=== PATIENT | male | born 1950 | race Caucasian/White ===

== ENCOUNTER 2017-03-26 20:50 | Observation (INO) ==
--- NOTE | 2017-03-26 21:30 | Emergency Department Note ---
Disposition Clinical Impression: Acute renal failure Qualifiers: Acute renal failure type: unspecified Qualified Code(s): N17.9 - Acute kidney failure, unspecified Disposition: Admitted As Inpatient Condition: Fair Referrals: NONE,PCP [Primary Care Provider] - Forms: Work/School Release, ED Satisfaction Letter General Adult HPI - General Chief complaint: ED General Medical Stated complaint: High BP Time Seen by Provider: 03/26/17 21:08 Source: patient Mode of arrival: private vehicle Limitations: no limitations Nursing Notes Reviewed: Yes Vital Signs Reviewed: Yes - History of Present Illness Pt Subjective Complaint: "My blood pressure is elevated and I just dont feel well." Onset (ago): day(s) Location: other Radiation: non-radiation Pain Scale: 2 (Patient states, "I still have some soreness in chest from falling last week") Consistency: intermittent (Patient states, "It really only hurts if I move a certain way or take a big breath") Improves with: rest Worsens with: movement, other ("Big breath" - Patient demonstrates a deep inspiration) Associated symptoms: Reports: loss of appetite, malaise, other (diarrhea x 3 days - "runny, 4-5 times daily, no blood or melena"). Denies: confusion, cough , diaphoresis, fever/chills, headaches, nausea/vomiting, rash, seizure, shortness of breath, syncope, weakness Treatments Prior to Arrival: other (Was given Rx for Naproxen by Orthopedist to help with the soreness in the anterior chest wall) - Related Data Previous Rx's Medication Instructions Recorded Benzonatate [Tessalon] 100 mg PO TID #30 capsule 11/23/15 Oseltamivir [Tamiflu] 75 mg PO BID #10 capsule 11/23/15 Allergies Allergy/AdvReac Type Severity Reaction Status Date / Time Iodinated Contrast- Oral and Allergy See Verified 11/15/15 09:29 IV Dye Comments All systems ED: reviewed and negative except as stated. Review of Systems: As Per HPI Constitutional: Denies: fever, chills, weakness, night sweats Eyes: Denies: vision change ENT ED: Denies: throat pain, congestion, dysphagia Cardiovascular: Reports: as per HPI. Denies: palpitations, dyspnea on exertion , orthopnea, edema, syncope Respiratory: Denies: cough, dyspnea, wheezes, hemoptysis, stridor, sputum production Gastrointestinal: Reports: as per HPI, diarrhea. Denies: abdominal pain, nausea , vomiting, constipation ("Was constipated for a few days then started having diarrhea") Genitourinary: Denies: hematuria Musculoskeletal: Denies: back pain, neck pain, joint swelling Integumentary: Denies: rash Neurological: Denies: headache, weakness, numbness, paresthesias, confusion, abnormal gait, vertigo Psychiatric: Denies: anxiety Endocrine: Denies: fatigue Hematological/Lymphatic: Denies: easy bleeding, easy bruising Past Medical History - Past Medical History Attestation: Yes The following information was validated with the patient. Source: patient Medical history: Reports: coronary artery disease, GERD, hyperlipidemia, hypertension, myocardial infarction Surgical history: Reports: angioplasty/stent (one stent placed in 1999), appendectomy, other Psychiatric history: Reports: anxiety, depression - Social History Smoking Status: Never smoker Alcohol use: Reports: none Drug use: Reports: none Physical Exam - General Limitations: no limitations General appearance: alert, in no apparent distress - Head Head exam: atraumatic, normocephalic, normal inspection - Eye Eye exam: Present: normal appearance, PERRL. Absent: scleral icterus, conjunctival injection, periorbital swelling - ENT ENT exam: mucous membranes moist - Neck Neck exam: Present: normal inspection, full ROM, trachea midline. Absent: tenderness, meningismus - Chest Chest inspection: Present: normal inspection, symmetric chest wall rise, tenderness - Respiratory Respiratory exam: Present: normal lung sounds bilaterally. Absent: respiratory distress, wheezes, stridor, accessory muscle use, prolonged expiratory phase - Cardiovascular Cardiovascular exam: Present: regular rate, normal rhythm, normal heart sounds - Abdominal Exam Abdominal exam: Present: soft, Non-Tender, normal bowel sounds. Absent: distention, guarding, rebound, rigidity, organomegaly, Graham's sign, ascites, mass, pulsatile mass - Extremities Exam Extremities exam: Present: normal inspection, full ROM, normal capillary refill. Absent: pedal edema, joint swelling, calf tenderness - Back Exam Back exam: Present: normal inspection - Neurological Exam Neurological exam: Present: alert, oriented X3, CN II-XII intact, normal gait - Psychiatric Psychiatric exam: Present: normal affect, normal mood - Skin Skin exam: Present: warm, dry, intact, normal color Course Course Narrative: Patient is a 67-year-old male with history of coronary artery disease, status post one stent placed in year 1999. His marketing pr intern is in [place], but he has not seen him in several years. Patient cannot recall when his last stress test was. He presents for evaluation of generalized malaise for the last three days. He has had diarrhea, elevated blood pressure and some continued soreness in the chest from a fall last Sunday. He describes it as mechanical fall stemming from his knee giving out on him. He was holding onto a water bottle against his chest when he fell forward and has had some soreness in the anterior chest wall since then. He saw his orthopedist in a follow-up appointment for knee pain and discussed the chest soreness with that physician. He was given a prescription for naproxen to help with this pain. He has taken this since last Sunday. He denies any other medication changes. He states that the soreness in his chest does not feel similar in any way to his heart attack, but because of his heart history and the elevated blood pressure, he thought he should get everything checked out. He denies nausea, vomiting, fever or chills, dizziness, weakness, vertigo, syncope, shortness of breath or dyspnea on exertion. EKG, labs and x-ray have been ordered. Patient's EKG is unchanged compared to 2013, and shows a normal sinus rhythm with an old anteroseptal [place]. Chest x-ray was read as stable cardiomegaly. Labs show acute renal failure. This is new for him. I suspected it is partly due to the naproxen and partly dehydration. Hospitalist will be contacted for admission. Patient is resting comfortably and has no complaints at this time. IV fluids have been ordered. Vital Signs Temperature 97.8 F 03/26/17 21:02 Pulse Rate 77 03/26/17 21:02 Respiratory Rate 18 03/26/17 21:02 Blood Pressure 171/111 03/26/17 21:02 O2 Sat by Pulse Oximetry 94 03/26/17 21:02 Temperature 97.8 F 03/26/17 21:02 Pulse Rate 75 03/26/17 22:39 Respiratory Rate 18 03/26/17 22:39 Blood Pressure 148/93 03/26/17 22:39 O2 Sat by Pulse Oximetry 94 03/26/17 22:39 Oxygen Delivery Oxygen Delivery Room Air Medical Decision Making - Medical Records Medical records reviewed: Yes I reviewed the patient's medical records. - Lab Data Lab results reviewed: Yes I reviewed the patient's lab results. Lab results narrative: Laboratory Last Values WBC 9.8 K/mcL (4.3-11.1) 03/26/17 21:33 RBC 4.70 M/mcL (4.19-5.50) 03/26/17 21: Hgb 13.7 g/dL (12.9-16.9) 03/26/17 21: Hct 42.9 % (37.5-50.1) 03/26/17 21: MCV 91.3 fL (83.0-100.0) 03/26/17 21: MCH 29.1 pg (28.0-33.3) 03/26/17 21: MCHC 31.9 g/dL (31.6-35.5) 03/26/17 21: RDW 14.7 % (11.5-14.5) H 03/26/17 21:33 Plt Count 164 K/mcL (140-400) 03/26/17 21: MPV 11.8 fL (9.4-12.4) 03/26/17 21: Immature Gran % 0.2 % (0-4) 03/26/17 21: Seg Neutrophils % 72.5 % 03/26/17 21: Lymphocytes % 16.7 % 03/26/17 21: Monocytes % 8.1 % 03/26/17 21: Eosinophils % 1.9 % 03/26/17 21: Basophils % 0.6 % 03/26/17 21:33 Neutrophils # 7.1 K/mcL (1.6-8.9) 03/26/17 21: Lymphocytes # 1.6 K/mcL (0.6-4.6) 03/26/17 21: Monocytes # 0.8 K/mcL (0.0-1.3) 03/26/17 21: Eosinophils # 0.2 K/mcL (0.0-0.6) 03/26/17 21: Basophils # 0.1 K/mcL (0.0-0.2) 03/26/17 21:33 PT 12.0 Seconds (9.4-12.1) 03/26/17 21:35 INR 1.1 03/26/17 21:35 APTT 29.7 Seconds (26.0-36.0) 03/26/17 21:35 Sodium 139 mEq/L (136-145) 03/26/17 21:33 Potassium 5.4 mEq/L (3.5-4.5) H 03/26/17 21:33 Chloride 105 mEq/L (98-109) 03/26/17 21:33 Carbon Dioxide 26 mEq/L (19-29) 03/26/17 21:33 BUN 27 mg/dL (8-26) H 03/26/17 21:33 Creatinine 1.74 mg/dL (0.72-1.25) H 03/26/17 21:33 Est GFR ( Amer) 48 (> 60) L 03/26/17 21:33 Est GFR (Non-Af Amer) 39 (> 60) L 03/26/17 21:33 BUN/Creatinine Ratio 16 (6-26) 03/26/17 21:33 Glucose 96 mg/dL (70-99) 03/26/17 21:33 Calculated Osmolality 293 (280-300) 03/26/17 21:33 Calcium 9.5 mg/dL (8.6-10.8) 03/26/17 21:33 Total Bilirubin 0.7 mg/dL (0.2-1.2) 03/26/17 21:33 Direct Bilirubin 0.3 mg/dL (0.0-0.5) 03/26/17 21:33 AST 19 Units/L (5-34) 03/26/17 21:33 ALT 19 Units/L (0-55) 03/26/17 21:33 Alkaline Phosphatase 87 Units/L (38-126) 03/26/17 21:33 Troponin I 0.00 ng/mL (0-0.03) 03/26/17 21:33 Serum Total Protein 7.6 g/dL (6.0-8.3) 03/26/17 21:33 Albumin 4.0 g/dL (3.5-5.0) 03/26/17 21:33 Globulin 3.6 g/dL (2.4-3.5) H 03/26/17 21:33 Albumin/Globulin Ratio 1.1 (1.1-2.2) 03/26/17 21:33 Lipase 42 Units/L (8-78) 03/26/17 21:33 Urine Color Yellow (Yellow) 03/26/17 21:45 Urine Clarity Clear (Clear) 03/26/17 21:45 Urine pH 7.5 pH Units (5.0-8.0) 03/26/17 21:45 Ur Specific [place] 1.024 (1.010-1.025) 03/26/17 21:45 Urine Protein 30 mg/dL (Neg-Trace) H 03/26/17 21:45 Urine Glucose (UA) Normal mg/dL (Normal) 03/26/17 21:45 Urine Ketones Negative mg/dL (Negative) 03/26/17 21:45 Urine Blood Negative (Negative) 03/26/17 21:45 Urine Nitrite Negative (Negative) 03/26/17 21:45 Urine Bilirubin Negative (Negative) 03/26/17 21:45 Urine Urobilinogen Normal mg/dL (Normal) 03/26/17 21:45 Ur Leukocyte Esterase Negative (Negative) 03/26/17 21:45 Urine Microscopic RBC 0-3 per hpf (0-3) 03/26/17 21:45 Urine Microscopic WBC 0-3 per hpf (0-3) 03/26/17 21:45 Ur Squamous Epith Cells Many per lpf (None-Few) H 03/26/17 21:45 Ur Culture Indicated? NO (NO) 03/26/17 21:45 Result diagrams: 03/26/17 21:33 03/26/17 21:33 Lab Results 03/26/17 03/26/17 03/26/17 Range/Units 21:33 21:33 21:33 WBC 9.8 (4.3-11.1) K/mcL RBC 4.70 (4.19-5.50) M/mcL Hgb 13.7 (12.9-16.9) g/dL Hct 42.9 (37.5-50.1) % MCV 91.3 (83.0-100.0) fL MCH 29.1 (28.0-33.3) pg MCHC 31.9 (31.6-35.5) g/dL RDW 14.7 H (11.5-14.5) % Plt Count 164 (140-400) K/mcL MPV 11.8 (9.4-12.4) fL Immature Gran % 0.2 (0-4) % Seg Neutrophils % 72.5 % Lymphocytes % 16.7 % Monocytes % 8.1 % Eosinophils % 1.9 % Basophils % 0.6 % Neutrophils # 7.1 (1.6-8.9) K/mcL Lymphocytes # 1.6 (0.6-4.6) K/mcL Monocytes # 0.8 (0.0-1.3) K/mcL Eosinophils # 0.2 (0.0-0.6) K/mcL Basophils # 0.1 (0.0-0.2) K/mcL PT (9.4-12.1) Seconds INR APTT (26.0-36.0) Seconds Sodium 139 (136-145) mEq/L Potassium 5.4 H (3.5-4.5) mEq/L Chloride 105 (98-109) mEq/L Carbon Dioxide 26 (19-29) mEq/L BUN 27 H (8-26) mg/dL Creatinine 1.74 H (0.72-1.25) mg/dL Est GFR ( Amer) 48 L (> 60) Est GFR (Non-Af Amer) 39 L (> 60) BUN/Creatinine Ratio 16 (6-26) Glucose 96 (70-99) mg/dL Calculated Osmolality 293 (280-300) Calcium 9.5 (8.6-10.8) mg/dL Total Bilirubin 0.7 (0.2-1.2) mg/dL Direct Bilirubin 0.3 (0.0-0.5) mg/dL AST 19 (5-34) Units/L ALT 19 (0-55) Units/L Alkaline Phosphatase 87 (38-126) Units/L Troponin I 0.00 (0-0.03) ng/mL Serum Total Protein 7.6 (6.0-8.3) g/dL Albumin 4.0 (3.5-5.0) g/dL Globulin 3.6 H (2.4-3.5) g/dL Albumin/Globulin Ratio 1.1 (1.1-2.2) Lipase 42 (8-78) Units/L Urine Color (Yellow) Urine Clarity (Clear) Urine pH (5.0-8.0) pH Units Ur Specific [place] (1.010-1.025) Urine Protein (Neg-Trace) mg/dL Urine Glucose (UA) (Normal) mg/dL Urine Ketones (Negative) mg/dL Urine Blood (Negative) Urine Nitrite (Negative) Urine Bilirubin (Negative) Urine Urobilinogen (Normal) mg/dL Ur Leukocyte Esterase (Negative) Urine Microscopic RBC (0-3) per hpf Urine Microscopic WBC (0-3) per hpf Ur Squamous Epith Cells (None-Few) per lpf Ur Culture Indicated? (NO) 03/26/17 03/26/17 Range/Units 21:35 21:45 WBC (4.3-11.1) K/mcL RBC (4.19-5.50) M/mcL Hgb (12.9-16.9) g/dL Hct (37.5-50.1) % MCV (83.0-100.0) fL MCH (28.0-33.3) pg MCHC (31.6-35.5) g/dL RDW (11.5-14.5) % Plt Count (140-400) K/mcL MPV (9.4-12.4) fL Immature Gran % (0-4) % Seg Neutrophils % % Lymphocytes % % Monocytes % % Eosinophils % % Basophils % % Neutrophils # (1.6-8.9) K/mcL Lymphocytes # (0.6-4.6) K/mcL Monocytes # (0.0-1.3) K/mcL Eosinophils # (0.0-0.6) K/mcL Basophils # (0.0-0.2) K/mcL PT 12.0 (9.4-12.1) Seconds INR 1.1 APTT 29.7 (26.0-36.0) Seconds Sodium (136-145) mEq/L Potassium (3.5-4.5) mEq/L Chloride (98-109) mEq/L Carbon Dioxide (19-29) mEq/L BUN (8-26) mg/dL Creatinine (0.72-1.25) mg/dL Est GFR ( Amer) (> 60) Est GFR (Non-Af Amer) (> 60) BUN/Creatinine Ratio (6-26) Glucose (70-99) mg/dL Calculated Osmolality (280-300) Calcium (8.6-10.8) mg/dL Total Bilirubin (0.2-1.2) mg/dL Direct Bilirubin (0.0-0.5) mg/dL AST (5-34) Units/L ALT (0-55) Units/L Alkaline Phosphatase (38-126) Units/L Troponin I (0-0.03) ng/mL Serum Total Protein (6.0-8.3) g/dL Albumin (3.5-5.0) g/dL Globulin (2.4-3.5) g/dL Albumin/Globulin Ratio (1.1-2.2) Lipase (8-78) Units/L Urine Color Yellow (Yellow) Urine Clarity Clear (Clear) Urine pH 7.5 (5.0-8.0) pH Units Ur Specific [place] 1.024 (1.010-1.025) Urine Protein 30 H (Neg-Trace) mg/dL Urine Glucose (UA) Normal (Normal) mg/dL Urine Ketones Negative (Negative) mg/dL Urine Blood Negative (Negative) Urine Nitrite Negative (Negative) Urine Bilirubin Negative (Negative) Urine Urobilinogen Normal (Normal) mg/dL Ur Leukocyte Esterase Negative (Negative) Urine Microscopic RBC 0-3 (0-3) per hpf Urine Microscopic WBC 0-3 (0-3) per hpf Ur Squamous Epith Cells Many H (None-Few) per lpf Ur Culture Indicated? NO (NO) - Radiology Data Radiology results reviewed: Yes I reviewed the patient's radiology results. Chest X-Ray 03/26/17 21:18 IMPRESSION: No acute process. Stable cardiomegaly. D/ / Olive Constantino MD / Olive Constantino MD Interpreting Provider: Olive Constantino MD - EKG Data EKG #1 EKG attestation: Yes I reviewed and interpreted this EKG. EKG shows normal: sinus rhythm Rate: normal Rhythm: NSR [place]/QRS: normal QRS morphology: poor R-wave progression When compared to previous EKG there are: no significant changes Interpretation: unchanged when compared to prior tracing (date), other ( Previous anterior septal [place] ) Attestation Statement - Attestation Attestation: I, Michael Alfaro DO have provided [id number] time during the care of this patient. Detailed review the presentation, symptoms, medical history were discussed and reviewed with the mid-level provider Maria Teresa Abbott PA-C/FL[employer] RESERVATIONS MANAGER. Medical intervention labs and imaging studies were reviewed in detail. See full documentation of physical exam and course of care in the mid-level provider 's note. I agree with the determined course of care, medical interventio,n and disposition put forth by the mid-level provider. See below documentation for changes or alterations in documentation. 67-year-old male presents to emergency room with complaint of generalized malaise and elevated blood pressure home. He has a history of cardiac issues including a myocardial infarction with stenting. He has not fallen up with PCP or marketing pr intern since that event. Patient does not appear to have appropriate outpatient medical treatment established at this time. Screening evaluation completed for asymptomatic hypertension with no other complaints. EKG shows sinus rhythm with no acute pathology. He does have an elevated kidney function tests and this time with decreased GFR. Concern is noted for hypertension with end organ dysfunction. Patient otherwise has negative troponin. Detailed review and documented physical exam completed by the mid-level provider. Admission process to be completed after detailed discussion with the patient at the bedside. My physical exam is otherwise benign. Lungs are clear heart is regular abdomen soft nontender nondistended. Vital signs reviewed and are otherwise stable. Patient is in no distress will be admitted for evaluation symptomatically treatment of kidney related insufficiency and elevated blood pressure.
[2017-03-26 21:51] LABS: Basophils # 0.1 K/mcL (0.0-0.2); Basophils % 0.6 %; Eosinophils # 0.2 K/mcL (0.0-0.6); Eosinophils % 1.9 %; Hematocrit 42.9 % (37.5-50.1); Hemoglobin 13.7 g/dL (12.9-16.9); Immature Granulocytes % 0.2 % (0-4); Lymphocytes # 1.6 K/mcL (0.6-4.6); Lymphocytes % 16.7 %; Mean Corpuscular HGB Conc 31.9 g/dL (31.6-35.5); Mean Corpuscular Hemoglobin 29.1 pg (28.0-33.3); Mean Corpuscular Volume 91.3 fL (83.0-100.0); Mean Platelet Volume 11.8 fL (9.4-12.4); Monocytes # 0.8 K/mcL (0.0-1.3); Monocytes % 8.1 %; Neutrophils # 7.1 K/mcL (1.6-8.9); Platelet Count 164 K/mcL (140-400); Red Cell Distribution Width 14.7 % (11.5-14.5); Segmented Neutrophils % 72.5 %
[2017-03-26 22:26] LABS: INR 1.1
[2017-03-26 22:29] LABS: Activated Partial Thrombo Time 29.7 Seconds (26.0-36.0)
[2017-03-26 22:32] LABS: Bilirubin,Urine Negative (Negative); Clarity,Urine Clear (Clear); Color,Urine Yellow (Yellow); Glucose,Urine (UA) Normal (Normal)
[2017-03-26 22:33] LABS: Blood,Urine Negative (Negative); Ketones,Urine Negative (Negative); Leukocyte Esterase,Urine Negative (Negative); Nitrite,Urine Negative (Negative); PH,Urine 7.5 pH Units (5.0-8.0); Protein,Urine 30 mg/dL (Neg-Trace); RBC,Urine 0-3 per hpf (0-3); Specific Gravity,Urine 1.024 (1.010-1.025); Squamous Epithelial Cell,Urine Many per lpf (None-Few); Urobilinogen,Urine Normal (Normal); WBC,Urine 0-3 per hpf (0-3)
[2017-03-26 23:03] LABS: Albumin/Globulin Ratio 1.1 (1.1-2.2); Bilirubin,Direct 0.3 mg/dL (0.0-0.5); Bilirubin,Total 0.7 mg/dL (0.2-1.2); Calcium 9.5 mg/dL (8.6-10.8); Globulin 3.6 g/dL (2.4-3.5); Total Protein 7.6 g/dL (6.0-8.3)
[2017-03-26 23:04] LABS: Potassium 5.4 mEq/L (3.5-4.5)
[2017-03-26] MEDS ORDERED: 0.9 % Sodium Chloride 1,000 ML IVC ONE (23:07)
[2017-03-27] MEDS ORDERED: Naloxone 0.4 MG/ML INJ IVP PRN (03:27)
[2017-03-27] MEDS ORDERED: Ondansetron 4 MG/2 ML VIAL IVP PRN (03:27)
[2017-03-27] MEDS ORDERED: *HR* Morphine 2 MG/ML SYRINGE IVP PRN (03:27)
--- NOTE | 2017-03-27 03:57 | Internal Med History&Physical ---
Date of Encounter: 03/27/17 Time of Encounter: 03:52 Assessment and Plan (1) Acute kidney injury Current visit: Yes Status: Acute 1. Hold diuretics and Naprosyn. 2. Verify home med list when able. 3. IVF hydration. 4. Will need nephrology consult if renal function does not improve. (2) Chest pain Current visit: Yes Status: Acute 1. Will stop Naprosyn. 2. Chest pain is musculoskeletal and occurred while at work. Qualifiers: Chest pain type: intercostal pain Qualified Code(s): R07.82 - Intercostal pain (3) DVT prophylaxis Current visit: Yes Status: Acute 1. Heparin SQ. Internal Medicine - H&P: HPI Chief complaint: chest wall pain; fatigue Admitted From: Emergency Dept Plans for Post Hospital Care: Home History of present illness: Mr. De Santiago is a 67 year old male who presents with complaints of fatigue, malaise , constipation, and some chest wall pain. He had fallen last week and sustained a contusion to his chest wall. He was placed on some Naprosyn which has helped alleviate his symptoms. However, he has complained of some subtle GI upset, fatigue, malaise, and decreased urine output. He was seen in the ER and had initial workup performed. EKG and troponin were negative. He does have a history of heart disease and it was felt prudent to admit him for observation. Additionally, he does have evidence of acute kidney injury which is new for him. Unfortunately, his medication list is not updated, but he states he takes a blood pressure pill and a water pill. Given that he is on a chronic diuretic, has decrease oral fluid intake, and has been on Naprosyn, I am concerned about some prerenal injury and/or ATN. Patient denies any fevers, muscle or body aches, vomiting, or diarrhea. Past Med Surg Social Fam HX - Past Medical History Attestation: Yes The following information was validated with the patient. Source: patient, old records reviewed Medical history: coronary artery disease, GERD, hyperlipidemia, hypertension, myocardial infarction Psychiatric history: anxiety, depression - Past Surgical History Surgical History: angioplasty/stent, appendectomy, other - Social History Smoking Status: Never smoker Smokeless Tobacco Status: No Alcohol use: none Drug use: none Current living situation: Home, With Family Activity Level: Independent ambulation - Family History Mother Living Status: Hx Family Psychosocial Disorders: Yes (alzheimers) Father Living Status: Hx Family Cardiac Disorders: Yes Brother Living Status: Hx Family Endocrine Disorder: Yes (DM) Internal Medicine - H&P: Meds 3 Allergy/AdvReac Type Severity Reaction Status Date / Time Iodinated Contrast- Oral and Allergy See Verified 11/15/15 09:29 IV Dye Comments - Constitutional Constitutional: no chills, no fever(s) - EENT Eyes: no blurry vision, no change in vision Ears: no ear pain, no tinnitus Nose, mouth and throat: no nasal congestion, no nasal discharge, no sinus pressure, no sore throat - Cardiovascular Cardiovascular ROS IM: chest pain, no diaphoresis, no dyspnea, no dyspnea on exertion, no edema, no palpitations - Respiratory Respiratory: no cough, no dyspnea, no hemoptysis, no wheezing, no chest congestion, no excessive phlegm production - Gastrointestinal Gastrointestinal: bloating, constipation, cramping, no abdominal pain, no diarrhea, no hematemesis, no hematochezia, no melena, no nausea, no vomiting - Genitourinary Genitourinary ROS male: no dysuria, no flank pain, no hematuria - Musculoskeletal Musculoskeletal ROS IM: no arthralgias, no back pain - Integumentary Integumentary IM: no rash, no jaundice - Neurological Neurological ROS: no dizziness, no focal weakness, no frequent falls, no headache(s) - Psychiatric Psychiatric: no anxiety, no depression - Endocrine Endocrine IM: no polydipsia, no polyuria - Hematologic/Lymphatic Hematologic/Lymphatic: no easy bruising, no lymphadenopathy - Allergic/Immunologic Allergic/Immunologic: no wheezing - Constitutional Vitals: Temp Pulse Resp BP Pulse Ox 97.7 F 65 16 158/89 93 03/27/17 01:02 03/27/17 01:02 03/27/17 01:02 03/27/17 01:02 03/27/17 01:02 General appearance: Present: cooperative, A&O X 3, pleasant, no acute distress, answers questions appropriately - Head Head exam: Present: atraumatic, normal inspection - Eye Eye exam: Present: EOMI, normal appearance, PERRL. Absent: scleral icterus Pupils: Present: normal accommodation - ENT ENT exam: Present: mucous membranes dry, normal exam - Neck Neck exam general surgery: Present: full ROM, supple. Absent: tenderness - Respiratory Respiratory exam: Present: chest wall tenderness, CTAB. Absent: rales, rhonchi , wheezes - Cardiovascular Cardiovascular exam: Present: RRR, +S1, +S2. Absent: diastolic murmur, systolic murmur - GI/Abdominal GI/Abdominal exam: Present: normal bowel sounds, soft. Absent: hepatomegaly, mass, splenomegaly, tenderness - Extremities Exam Extremities exam: Present: full ROM, warm. Absent: calf tenderness, joint swelling, pedal edema - Back Exam Back exam: Present: normal inspection. Absent: CVA tenderness (L), CVA tenderness (R) - Neurological Exam Neurological exam: Present: alert, CN II-XII intact, oriented X3 - Psychiatric Psychiatric exam: Present: normal affect, normal mood - Skin Skin exam: Present: dry Internal Med - H&P Results - Labs CBC & Chem 7: 03/26/17 21:33 03/26/17 21:33 - EKG Data -: EKG Interpreted by Myself - EKG Data Prior EKG available for review: yes When compared to previous EKG: there is no significant change EKG comments: 03/27/17 04:04 NSR; old anteroseptal [place] - Diagnostic Studies Chest x-ray Status: image reviewed by me (negative)
[2017-03-27] MEDS: 0.9 % Sodium Chloride 1,000 ML IVC SCH ×2 (04:04→15:10)
[2017-03-27 05:02] LABS: Basophils # 0.1 K/mcL (0.0-0.2); Basophils % 0.5 %; Eosinophils # 0.2 K/mcL (0.0-0.6); Eosinophils % 1.9 %; Hematocrit 42.6 % (37.5-50.1); Hemoglobin 13.4 g/dL (12.9-16.9); Immature Granulocytes % 0.4 % (0-4); Lymphocytes # 1.9 K/mcL (0.6-4.6); Lymphocytes % 19.9 %; Mean Corpuscular HGB Conc 31.5 g/dL (31.6-35.5); Mean Corpuscular Hemoglobin 29.1 pg (28.0-33.3); Mean Corpuscular Volume 92.4 fL (83.0-100.0); Mean Platelet Volume 11.9 fL (9.4-12.4); Monocytes # 0.8 K/mcL (0.0-1.3); Monocytes % 8.3 %; Neutrophils # 6.5 K/mcL (1.6-8.9); Platelet Count 151 K/mcL (140-400); Red Blood Count 4.61 M/mcL (4.19-5.50); Red Cell Distribution Width 14.8 % (11.5-14.5)
[2017-03-27 05:22] LABS: Albumin 3.7 g/dL (3.5-5.0); Albumin/Globulin Ratio 1.2 (1.1-2.2); Bilirubin,Total 0.8 mg/dL (0.2-1.2); Calcium 9.4 mg/dL (8.6-10.8); Chol/HDL Ratio 3.1 (0-4.9); Globulin 3.1 g/dL (2.4-3.5); Magnesium 2.1 mg/dL (1.6-2.6); Total Protein 6.8 g/dL (6.0-8.3)
[2017-03-27] MEDS: *HR* Heparin 5,000 UNIT/ML VIAL SQ SCH ×2 (06:18→18:08)
[2017-03-27] MEDS ORDERED: Perflutren Lipid Microsphere 1.3 ML in 0.9 % Sodium Chloride 8.7 ML IVP ONE (10:26)
--- NOTE | 2017-03-27 12:14 | Internal Med Progress Note ---
Date of Encounter: 03/27/17 Time of Encounter: 09:15 - Assessment and plan (1) Adverse effect of non-steroidal anti-inflammatory drug (NSAID) Current Visit: Yes Status: Suspected Assessment and plan: Initial report was that the patient had only been on naproxen for one week however he states that he has been taking 1 tablet twice a day and he had a bottle of 60 and there are only 2 left so he has been taking these for a month. Likely contributing to his acute kidney injury, they have been held at this time and he has been instructed to avoid NSAIDs pending further investigation. Of note, he states that his chronic pain to his right knee which was status post total knee replacement and subsequent left leg pain is the best that he has felt in quite some time. He was cautioned that this may have been secondary to the NSAID usage which has now been held. If his pain returns, he was instructed to follow-up with his orthopedic doctor for further recommendations. (2) Hyperkalemia Current Visit: Yes Status: Acute Assessment and plan: Pseudohyperkalemia secondary to acute kidney injury, improving, will trend (3) Acute kidney injury Current Visit: Yes Status: Acute Assessment and plan: Improving, will continue IV fluids, monitor overnight. If he continues to improve, likely discharge tomorrow pending clinical outcomes. (4) Chest pain Current Visit: Yes Status: Acute Assessment and plan: Reproducible with palpation highly consistent with musculoskeletal etiology. He states that he fell last week and he was carrying a bottle of water and when he fell, the bottle water went into his chest. Chest x-ray negative. Troponins negative 3. Low suspicion for ACS. ITS Impressions Chest X-Ray 03/26/17 21:18 IMPRESSION: No acute process. Stable cardiomegaly. D/ / Olive Constantino MD / Olive Constantino MD Interpreting Provider: Olive Constantino MD Qualifiers: Chest pain type: intercostal pain Qualified Code(s): R07.82 - Intercostal pain (5) DVT prophylaxis Current Visit: Yes Status: Acute Assessment and plan: Subcutaneous heparin - Subjective Interval history: Patient seen and examined. On examination, patient is sitting upright in bed watching television. Patient denies pain at this time and states that his legs currently feel better than they have felt in years. He is endorsing a normal appetite. - Constitutional Vitals: Temp Pulse Resp BP Pulse Ox 98.5 F 70 16 164/98 92 03/27/17 11:01 03/27/17 11:01 03/27/17 11:01 03/27/17 11:01 03/27/17 11:01 General appearance: Present: cooperative, A&O X 3, pleasant, no acute distress, obese, answers questions appropriately - Head Head exam: Present: atraumatic, normocephalic - Eye Eye exam: Present: PERRL, conjuntiva pink, sclera anicteric Pupils: Present: PERRL - Neck Neck exam general surgery: Present: supple, trachea midline. Absent: lymphadenopathy - Respiratory Respiratory exam: Present: CTAB. Absent: accessory muscle use, rales, respiratory distress, rhonchi, wheezes - Cardiovascular Cardiovascular exam: Present: RRR, +S1, +S2. Absent: diastolic murmur, gallop, rubs, systolic murmur - GI/Abdominal GI/Abdominal exam: Present: normal bowel sounds, soft, no peritoneal signs. Absent: distended, tenderness - Extremities Exam Extremities exam: Present: warm, radial pulses palpable and symmetrical. Absent : calf tenderness, cyanotic, pedal edema - Neurological Exam Neurological exam: Present: alert, CN II-XII intact, oriented X3, no focal deficits, strengths equal and symetr throughout. Absent: pronater drift, facial droop, speech deficit - Skin Skin exam: Present: dry, intact, normal color, warm Internal Medicine: Result - Labs CBC & Chem 7: 03/27/17 03:39 03/27/17 03:39 Labs: Short CBC 03/27/17 Range/Units 03:39 WBC 9.4 (4.3-11.1) K/mcL Hgb 13.4 (12.9-16.9) g/dL Hct 42.6 (37.5-50.1) % Plt Count 151 (140-400) K/mcL Neutrophils # 6.5 (1.6-8.9) K/mcL BMP 03/27/17 03:39 Sodium 137 Potassium 5.0 H Chloride 105 Carbon Dioxide 26 BUN 25 Creatinine 1.58 H Glucose 85 Calcium 9.4 Cardiac Enzymes 03/27/17 03/27/17 Range/Units 03:39 09:12 Troponin I 0.02 0.02 (0-0.03) ng/mL Liver Function 03/27/17 Range/Units 03:39 Total Bilirubin 0.8 (0.2-1.2) mg/dL AST 17 (5-34) Units/L ALT 18 (0-55) Units/L Alkaline Phosphatase 89 (38-126) Units/L Albumin 3.7 (3.5-5.0) g/dL - ABG Interpretation ABG results: PT/INR, D-dimer PT 12.0 Seconds (9.4-12.1) 03/26/17 21:35 Consult Discharge Plan - Plan Referrals: NONE,PCP [Primary Care Provider] -
[2017-03-27] MEDS: Metoprolol XL (24 HR) Succ 50 MG TAB.ER.24H PO SCH (12:36)
[2017-03-27] MEDS ORDERED: *HR* Metoprolol 5 MG/5 ML VIAL IVP PRN (16:21)
[2017-03-27] MEDS ORDERED: *HR* Metoprolol 5 MG/5 ML VIAL IVP ONE (16:23)
[2017-03-27] MEDS ORDERED: 0.9 % Sodium Chloride 1,000 ML IVC SCH ×2 (16:29→17:00)
[2017-03-27] MEDS ORDERED: *HR* LORazepam 2 MG/ML VIAL IVP PRN (16:59)
--- NOTE | 2017-03-27 17:02 | Event Note ---
Date of Encounter: 03/27/17 Time of Encounter: 16:30 Accelerated hypertension noted despite IV hydralazine. Holding his losartan and furosemide given his acute kidney injury. We will stop IV fluids at this time. Patient stating his face feels a bit puffy and states his abdominal girth appears enlarged. He denies shortness of breath or chest pain at this time. He does endorse epigastric pain. Repeat EKG unremarkable. Rechecking troponins as well this time. We will also obtain a retroperitoneal ultrasound given his acute kidney injury and accelerated hypertension. Metoprolol was continued earlier today when the dosage was confirmed by pharmacology note. Patient also appears anxious, will add IV lorazepam as needed. Echocardiogram reviewed and compared to prior echo from 2013 with no acute changes. Ejection fraction remains 40%. Does appear as if he has diastolic heart failure and he is on furosemide at home. We will stop IV fluids at this time and monitor closely.
--- NOTE | 2017-03-27 18:36 | Electrocardiograph Report ---
[address] [place] [address] Test Date: 2017-03-26 Pat Name: Sheng De Santiago Department: 104 Room: 3B16 Gender: M [employer]: [employer] : 1950 Requested By: Maria Teresa Abbott Order Number: [id number] Reading MD: Cathi Wu Measurements Intervals [place] Rate: 73 P: -3 AK: 201 QRS: -20 QRSD: 87 T: 71 QT: 334 QTc: 359 Interpretive Statements SINUS RHYTHM ANTEROSEPTAL MYOCARDIAL INFARCTION, OF INDETERMINATE AGE Electronically Signed On 03-27-2017 18:34:32 EDT by Cathi Wu
[2017-03-28 04:19] LABS: BUN/Creatinine Ratio 17 (6-26); Blood Urea Nitrogen 23 mg/dL (8-26); Calcium 9.7 mg/dL (8.6-10.8); Carbon Dioxide 22 mEq/L (19-29); Chloride 108 mEq/L (98-109); Glucose 93 mg/dL (70-99); Osmolality,Calculated 289 (280-300); Potassium 4.9 mEq/L (3.5-4.5); Sodium 138 mEq/L (136-145); eGFR For African Americans > 60 (> 60); eGFR For Non-African Americans 51 (> 60)
[2017-03-28] MEDS: *HR* Heparin 5,000 UNIT/ML VIAL SQ SCH ×2 (05:41→18:33)
[2017-03-28] MEDS: Metoprolol XL (24 HR) Succ 50 MG TAB.ER.24H PO SCH (09:07)
[2017-03-28] MEDS: Acetaminophen 325 MG TABLET PO PRN ×2 (09:08→22:24)
[2017-03-28] MEDS: Aspirin Enteric Coated 325 MG Tablet PO SCH (09:08)
[2017-03-28] MEDS: Furosemide 20 MG TABLET PO SCH (09:08)
[2017-03-28] MEDS: (Ezetimibe [Zetia] 10 MG) PO SCH (09:10)
--- NOTE | 2017-03-28 13:25 | Internal Med Progress Note ---
Date of Encounter: 03/28/17 Time of Encounter: 12:45 - Assessment and plan (1) Hypertension Current Visit: Yes Status: Chronic Assessment and plan: poorly controlled. His ADÁN improved today, so his furosemide and losartan home doses were continued. He remained hypertensive. At home, he is on losartan 100 mg daily, furosemide 20 mg daily, metoprolol XL 75 mg daily. Heart rate also averaging in the low 70s, we will increase his metoprolol dosage. Initially, patient was likely set for discharge today however given his uncontrolled hypertension, the patient stated he doesn't want to go home with his blood pressure uncontrolled and he cited severe anxiety and trepidation. We will adjust his medications and observe overnight. Likely discharge tomorrow pending clinical outcomes (2) Adverse effect of non-steroidal anti-inflammatory drug (NSAID) Current Visit: Yes Status: Suspected Assessment and plan: Initial report was that the patient had only been on naproxen for one week however he states that he has been taking 1 tablet twice a day and he had a bottle of 60 and there are only 2 left so he has been taking these for a month. I verified the prescription today which was filled on 03/06/17 of #40 tablets, and there are none left in the container. Likely contributing to his acute kidney injury, they have been held at this time and he has been instructed to avoid NSAIDs pending further investigation. Of note, he states that his chronic pain to his right knee which was status post total knee replacement and subsequent left leg pain is the best that he has felt in quite some time. He was cautioned that this may have been secondary to the NSAID usage which has now been held. If his pain returns, he was instructed to follow-up with his orthopedic doctor for further recommendations. (3) Hyperkalemia Current Visit: Yes Status: Acute Assessment and plan: Trending down as renal functioning improving. Pseudohyperkalemia secondary to acute kidney injury, will trend (4) Acute kidney injury Current Visit: Yes Status: Acute Assessment and plan: Improving and nearly resolved. Okayed to restart home furosemide and losartan this am. Had to stop his IVF yesterday for concerns of early fluid overload. He has denied shortness of breath throughout this admission. Will likely discharge tomorrow if his blood pressures are better controlled. Retroperitoneal ultrasound unremarkable for acute processes other than mid retention in the setting of BPH- follow up outpatient- urinalysis negative, no indication for further inpatient testing. ITS Impressions Retroperitoneum Ultrasound 03/27/17 21:30 IMPRESSION: 1. Mild cortical thinning in the left kidney and simple cysts in both kidneys. 2. Bladder mucosal thickening with a moderate postvoid residual. 3. Slight prominence of the prostate which may suggest bladder outflow obstruction. Correlate with urology evaluation. D/ / Obie Chávez MD / Obie Chávez MD Interpreting Provider: Obie Chávez MD (5) Chest pain Current Visit: Yes Status: Acute Assessment and plan: Reproducible with palpation highly consistent with musculoskeletal etiology. He states that he fell last week and he was carrying a bottle of water and when he fell, the bottle water went into his chest. Chest x-ray negative. Troponins negative 3. Low suspicion for ACS. ITS Impressions Chest X-Ray 03/26/17 21:18 IMPRESSION: No acute process. Stable cardiomegaly. D/ / Olive Constantino MD / Olive Constantino MD Interpreting Provider: Olive Constantino MD Qualifiers: Chest pain type: intercostal pain Qualified Code(s): R07.82 - Intercostal pain (6) DVT prophylaxis Current Visit: Yes Status: Acute Assessment and plan: Subcutaneous heparin - Subjective Interval history: Patient seen and examined. On examination, patient is sitting upright in bed eating lunch. Patient stating he is feeling better. He denies chest pain at this time. He is endorsing concern regarding his elevated blood pressures. - Constitutional Vitals: Temp Pulse Resp BP Pulse Ox 98.0 F 73 16 157/90 92 03/28/17 11:33 03/28/17 11:33 03/28/17 11:33 03/28/17 11:33 03/28/17 11:33 General appearance: Present: cooperative, A&O X 3, pleasant, no acute distress, obese, answers questions appropriately - Head Head exam: Present: atraumatic, normocephalic - Eye Eye exam: Present: PERRL, conjuntiva pink, sclera anicteric Pupils: Present: PERRL - Neck Neck exam general surgery: Present: supple, trachea midline. Absent: lymphadenopathy - Respiratory Respiratory exam: Present: CTAB. Absent: accessory muscle use, rales, respiratory distress, rhonchi, wheezes - Cardiovascular Cardiovascular exam: Present: RRR, +S1, +S2. Absent: diastolic murmur, gallop, rubs, systolic murmur - GI/Abdominal GI/Abdominal exam: Present: normal bowel sounds, soft, no peritoneal signs. Absent: distended, tenderness - Extremities Exam Extremities exam: Present: warm, radial pulses palpable and symmetrical. Absent : calf tenderness, cyanotic, pedal edema - Neurological Exam Neurological exam: Present: alert, CN II-XII intact, normal gait, oriented X3, no focal deficits, strengths equal and symetr throughout. Absent: pronater drift, facial droop, speech deficit - Skin Skin exam: Present: dry, intact, normal color, warm Internal Medicine: Result - Labs CBC & Chem 7: 03/27/17 03:39 03/28/17 03:09 Labs: BMP 03/28/17 03:09 Sodium 138 Potassium 4.9 H Chloride 108 Carbon Dioxide 22 BUN 23 Creatinine 1.39 H Glucose 93 Calcium 9.7 Cardiac Enzymes 03/27/17 03/27/17 Range/Units 15:33 16:58 Troponin I 0.01 0.00 (0-0.03) ng/mL - ABG Interpretation ABG results: PT/INR, D-dimer PT 12.0 Seconds (9.4-12.1) 03/26/17 21:35 - Impressions Impressions Retroperitoneum Ultrasound 03/27/17 21:30 IMPRESSION: 1. Mild cortical thinning in the left kidney and simple cysts in both kidneys. 2. Bladder mucosal thickening with a moderate postvoid residual. 3. Slight prominence of the prostate which may suggest bladder outflow obstruction. Correlate with urology evaluation. D/ / Obie Chávez MD / Obie Chávez MD Interpreting Provider: Obie Chávez MD Consult Discharge Plan - Plan Referrals: Sheng De Leon Jr, MD [Partnered Physician] - 04/05/17 10:30 am
--- NOTE | 2017-03-28 14:50 | Electrocardiograph Report ---
[place] [address] Test Date: 2017-03-27 Pat Name: Sheng De Santiago Department: 113 Room: 3B16 Gender: M [employer]: [facility] : 1950 Requested By: Ted Moulton Order Number: [id number] Reading MD: Darryl Chavez MD Measurements Intervals [place] Rate: 90 P: 66 DC: 211 QRS: -24 QRSD: 105 T: 64 QT: 347 QTc: 394 Interpretive Statements SINUS RHYTHM WITH FIRST DEGREE AV BLOCK Poor R wave progression Electronically Signed On 03-28-2017 14:48:45 EDT by Darryl Chavez MD
[2017-03-28] MEDS: Metoprolol XL (24 HR) Succ 25 MG TAB.ER.24H PO ONE ×2 (18:33→18:34)
[2017-03-29] MEDS: *HR* Heparin 5,000 UNIT/ML VIAL SQ SCH (06:29)
[2017-03-29 06:57] LABS: Calcium 9.8 mg/dL (8.6-10.8)
[2017-03-29] MEDS: Furosemide 20 MG TABLET PO SCH (07:43)
[2017-03-29] MEDS: (Ezetimibe [Zetia] 10 MG) PO SCH (07:45)
[2017-03-29] MEDS: Aspirin Enteric Coated 325 MG Tablet PO SCH (07:45)
[2017-03-29] MEDS ORDERED: Metoprolol XL (24 HR) Succ 50 MG TAB.ER.24H PO SCH (09:00)
--- NOTE | 2017-03-29 09:57 | Discharge Summary ---
<Miguel Angel Arredondo - Last Filed: 03/29/17 10:41> Date of Encounter: 03/29/17 Time of Encounter: 09:57 - Discharge Diagnosis (1) Hypertension Priority: Primary Status: Chronic Qualifiers: Hypertension type: unspecified Qualified Code(s): I10 - Essential (primary ) hypertension (2) Acute kidney injury Priority: Secondary Status: Acute (3) Chest pain Priority: Secondary Status: Acute Qualifiers: Chest pain type: intercostal pain Qualified Code(s): R07.82 - Intercostal pain (4) Adverse effect of non-steroidal anti-inflammatory drug (NSAID) Priority: Secondary Status: Suspected Qualifiers: Encounter type: initial encounter Qualified Code(s): T39.395A - Adverse effect of other nonsteroidal anti-inflammatory drugs [NSAID], initial encounter (5) Hyperkalemia Priority: Secondary Status: Acute - Discharge Medications Prescriptions: Metoprolol XL (24 HR) Succ [Toprol Xl] 100 mg PO DAILY #30 Home Medications: Aspirin [Lo-Dose Aspirin EC] 325 mg PO DAILY 03/27/17 [History] Atorvastatin Calcium [Lipitor] 80 mg PO HS 03/27/17 [History] BuPROPion [Wellbutrin] 75 PO 03/27/17 [History] Ezetimibe [Zetia] 10 mg PO DAILY 03/27/17 [History] Furosemide [Lasix] 20 mg PO DAILY 03/27/17 [History] Losartan Potassium [Cozaar] 100 mg PO DAILY 03/27/17 [History] Omeprazole [PriLOSEC] 20 PO BID 03/27/17 [History] Sertraline [Zoloft] 150 mg PO DAILY 03/27/17 [History] Testosterone Cypionate [Depo-Testosterone] 400 mg IM QMONTH 03/27/17 [History] Metoprolol XL (24 HR) Succ [Toprol Xl] 100 mg PO DAILY #30 03/29/17 [Rx] Allergies/Adverse Reactions: 3 Allergy/AdvReac Type Severity Reaction Status Date / Time No Known Allergies Allergy Verified 03/27/17 08:22 Procedures/tests Complete & Pending: Procedures Performed prior 72 hours Category Date Time Status Retroperitoneal Ultrasound - Complete [US Exams 03/27/17 21:30 Completed retroperitoneal comp] [US] Routine ECG 12 lead ECG [ECG] AM 0600 Y 03/27/17 06:00 Completed EV echocardiogram w enhance Routine Y 03/27/17 03:27 Completed CXR: "FINDINGS: The lungs are without acute focal process. There is no effusion or pneumothorax. The cardiomediastinal silhouette is prominent but stable. The osseous structures are without acute process. XR/XR chest 1V portable IMPRESSION: No acute process. Stable cardiomegaly." Echo: "Impressions: LVEF 40%. Mild to moderate LV systolic dysfunction with regional variations. There is evidence of mild diastolic dysfunction of the left ventricle. RV is not well evaluated. Mild pulmonic regurgitation. No pulmonary hypertension." Retroperitoneal U/S: "FINDINGS: Kidneys: The right kidney measures 10.3 x 4.6 x 4.8 cm in length and the left kidney measures 9.4 x 4.3 x 5.0 cm in length. Asymmetric cortical thinning in the left kidney. 5.5 cm cyst in the mid right kidney. 2.7 cm cyst in the mid left kidney. No solid renal lesion. Bladder: Bladder mucosa appears to be thickened. There is also debris within the lumen. Prevoid volume is measured at 277 cc. There is a postvoid residual measured at 73 cc. The prostate is measured 4.1 x 4.2 x 4.0 cm. US/US retroperitoneal comp IMPRESSION: 1. Mild cortical thinning in the left kidney and simple cysts in both kidneys. 2. Bladder mucosal thickening with a moderate postvoid residual. 3. Slight prominence of the prostate which may suggest bladder outflow obstruction. Correlate with urology evaluation." Date of admission: 03/27/17 00:19 Primary care physician: PCP NONE Discharging clinician: Miguel Angel Arredondo Anticipated date of discharge: 03/29/17 - Patient Status Disposition: Home, Self-Care Condition: Fair Functional capacity at discharge: independent ambulation Overall status at discharge: patient is progressing back to baseline - Discharge Instructions Instructions: Chest Pain (DC), Acute Kidney Injury (DC), Chronic Hypertension ( DC) Follow Up With: Sheng De Leon Jr, MD [Partnered Physician] - 04/05/17 10:30 am Additional Instructions: Follow-up appointments: If there is not an appointment listed below, please call your physician and schedule a follow-up appointment. If you have congestive heart failure and your symptoms return, make an appointment with your physician. Medication List: Carry an up to date list of medications you are taking at all time. We have given you an updated medication list including any new medications that you have been prescribed. Please provide that list to your primary provider Symptoms: If your condition changes or you experience any of the following symptoms, notify your physician immediately: Unusual or worsening pain, fever, persistent nausea and vomiting, bleeding, increase in swelling (especially in your legs), sudden weight gain, extreme dizziness, chest pain, increased drainage or redness from a wound or incision. Go to the emergency department if you experience a problem with breathing. Weights: If you have a history of swelling or shortness of breath, weigh yourself daily and notify your physician if you have a weight gain of two or more pounds in one day or 5 or more pounds in a week. If you experience any of the warning signs for stroke: Sudden numbness or weakness of the face, arm or leg; especially on one side of the body, sudden confusion, trouble speaking or understanding, sudden trouble seeing in one or both eyes, sudden trouble walking, dizziness, loss of balance or coordination, sudden sever headache with no cause; Call 911 or go to the emergency room. Stroke is a medical emergency. Some risk factors for stroke: Age, cigarette smoking, diabetes, excessive alcohol consumption, family history , high blood pressure, overweight, physical inactivity, prior stroke, heart attack, diagnosis of carotid artery stenosis or other artery disease. If you smoke, STOP: Smoking or tobacco use significantly increases your risk of heart and lung disease. Your chance of disease greatly increases if you continue to smoke. For more information, call the [place] tobacco quit line for smoking cessation QUIT-NOW ( ) - Diet and Activity Activity: resume usual activities as tolerated Diet: low salt diet Interval History: Patient reports feeling well. He denies CP, SOB, BOOTHE, Blurry vision, Abd pn, Nausea, Vomiting, Diarrhea, Dizziness. He reports feeling well enough to go home and reports being eager to go home. Hospital course: Mr. De Santiago is a 67 year old male C PMHX of coronary artery disease, GERD, hyperlipidemia, hypertension, myocardial infarction, anxiety and depression who reports to the hospital for fatigue, malaise, constipation and some chest wall pain. Patient was worked up for cardiac causes, but was negative and it was determiend to be chest wall pain. Patient was found to have an ADÁN, which improved with fluids and avoiding nephrotoxins. Patient was found to be taking an excessive amount of naprosyn. He was instructed to reduce his NSAID usage. Patient was also hypertensive to the 190s and had his Metoprolol dose increased. His BP was better controlled and he was sent home with close follow up. - Time Spent with Patient Total time spent providing and/or coordinating discharge services: 40 minutes - Constitutional Vitals: Temp Pulse Resp BP Pulse Ox 97.8 F 68 18 138/82 96 03/29/17 07:11 03/29/17 07:11 03/29/17 07:11 03/29/17 07:11 03/29/17 07:11 General appearance: Present: cooperative, A&O X 3, pleasant, no acute distress, obese, answers questions appropriately - Head Head exam: Present: atraumatic, normocephalic - Eye Eye exam: Present: sclera anicteric - ENT ENT exam: Present: mucous membranes moist - Neck Neck exam general surgery: Present: supple, trachea midline - Respiratory Respiratory exam: Present: CTAB. Absent: rales, rhonchi, wheezes - Cardiovascular Cardiovascular exam: Present: RRR, +S1, +S2. Absent: diastolic murmur, gallop, rubs, systolic murmur - GI/Abdominal GI/Abdominal exam: Present: normal bowel sounds, soft. Absent: tenderness - Extremities Exam Extremities exam: Absent: cyanotic, pedal edema, tenderness - Neurological Exam Neurological exam: Present: alert, oriented X3. Absent: facial droop, speech deficit - Psychiatric Psychiatric exam: Present: normal affect, normal mood - Skin Skin exam: Present: dry, intact, warm <Nandini,Kishor P - Last Filed: 03/29/17 18:35> Date of Encounter: 03/29/17 Procedures/tests Complete & Pending: Procedures Performed prior 72 hours Category Date Time Status Retroperitoneal Ultrasound - Complete [US Exams 03/27/17 21:30 Completed retroperitoneal comp] [US] Routine ECG 12 lead ECG [ECG] AM 0600 Y 03/27/17 06:00 Completed EV echocardiogram w enhance Routine Y 03/27/17 03:27 Completed Date of admission: 03/27/17 00:19 Primary care physician: PCP NONE Hospital course: Mr. De Santiago is a 67 year old male - Time Spent with Patient Total time spent providing and/or coordinating discharge services: - Constitutional Vitals: Temp Pulse Resp BP Pulse Ox 97.8 F 68 18 148/101 94 03/29/17 11:14 03/29/17 11:14 03/29/17 11:14 03/29/17 11:14 03/29/17 11:14 - Attending Attestation I examined this patient and my medical decision-making was reviewed with the Resident Physician. I agree with the documented findings, disposition and treatment plan as described except to the extent set forth below.
[2017-03-29 11:16] VITALS: BP 148/101
== END 2017-03-29 11:15 | disposition home or self-care (01) ==
LOC: 3BNU 20:50 → EMEROO 20:50 → 3BNU 03-27 00:35
PROVIDERS: ADMIT Pediatrics; ATTEND Registered Nurse

== ENCOUNTER 2018-01-06 17:48 | Observation (INO) ==
--- NOTE | 2018-01-06 18:18 | Emergency Department Note ---
Disposition Clinical Impression: Renal insufficiency Chest pain Qualifiers: Chest pain type: unspecified Qualified Code(s): R07.9 - Chest pain, unspecified Disposition: Admitted As Inpatient Condition: Fair Referrals: Sheng De Leon Jr, MD [Primary Care Provider] - Forms: ED Satisfaction Letter Time of Disposition: 21:13 Chest Pain HPI - General Chief Complaint: ED Chest Pain Stated Complaint: chest pain Time Seen by Provider: 01/06/18 18:01 Source: patient Limitations: no limitations Vital Signs Reviewed: Yes Nursing Notes Reviewed: Yes - History of Present Illness HPI Narrative: 67-year-old male history of CAD s/p stent resents emergency department with complaint of chest pain. When I asked what brought him in he says his blood pressure has been running higher over the past 2 days. It has been systolic 150s. The typically runs 120. He has been taken is antihypertensive medications without any recent changes. He is unable to recall what they are. He also reports Sunday afternoon he experienced nonexertional chest pain that was sharp and nonradiating. Is also been experiencing pain in his abdomen roughly around the same time that seems to be moving upwards. He denies any nausea or vomiting. Denies any injury or trauma. Denies any shortness of breath. Denies any lightheadedness or syncope. Denies any recent illness cough or congestion. He reports recently being admitted in diagnosed with pulmonary embolism which she takes Eliquis. He has not had a heart catheterization since his state was placed in 1999. He also reports every time he takes his aspirin in the morning the pain seems to be worse. Denies any recent long-distance travel. Pt complaint: chest pain Severity scale (1-10): 4 - Related Data Home Medications Medication Instructions Recorded Confirmed Aspirin [Lo-Dose Aspirin EC] 325 mg PO DAILY 03/27/17 04/13/17 Atorvastatin Calcium [Lipitor] 80 mg PO HS 03/27/17 04/13/17 Ezetimibe [Zetia] 10 mg PO DAILY 03/27/17 04/13/17 Furosemide [Lasix] 20 - 40 mg PO DAILY 03/27/17 04/13/17 Losartan Potassium [Cozaar] 100 mg PO DAILY 03/27/17 04/13/17 Sertraline [Zoloft] 150 mg PO DAILY 03/27/17 04/13/17 Testosterone Cypionate 400 mg IM QMONTH 03/27/17 04/13/17 [Depo-Testosterone] Previous Rx's Medication Instructions Recorded Metoprolol XL (24 HR) Succ [Toprol 100 mg PO DAILY #30 03/29/17 Xl] Apixaban [Eliquis] 10 mg PO BID #45 tablet 04/13/17 Apixaban [Eliquis] 10 mg PO BID #8 tablet 04/13/17 Allergies Allergy/AdvReac Type Severity Reaction Status Date / Time No Known Allergies Allergy Verified 03/27/17 08:22 All systems ED: reviewed and negative except as stated. Review of Systems: As Per HPI Constitutional: Denies: fever, chills Cardiovascular: Reports: chest pain. Denies: syncope Respiratory: Denies: cough, dyspnea Gastrointestinal: Reports: abdominal pain. Denies: nausea, vomiting, diarrhea, melena, hematochezia Genitourinary: Denies: urgency, dysuria Musculoskeletal: Denies: back pain Integumentary: Denies: rash, abrasion Neurological: Denies: headache, weakness Chest Pain PMH - Past Medical History Medical history: Reports: coronary artery disease, GERD, hyperlipidemia, hypertension, myocardial infarction Surgical history: Reports: angioplasty/stent, appendectomy, other Psychiatric history: Reports: anxiety, depression - Social History Smoking Status: Never smoker Alcohol use: Reports: none Drug use: Reports: none Physical Exam - General Limitations: no limitations General appearance: alert, in no apparent distress, obese - Head Head exam: atraumatic, normocephalic, normal inspection - Eye Eye exam: Present: normal appearance, PERRL, EOMI - ENT ENT exam: normal exam, normal oropharynx, mucous membranes moist - Neck Neck exam: Present: normal inspection, full ROM, trachea midline. Absent: tenderness - Chest Chest inspection: Present: normal inspection, symmetric chest wall rise. Absent : tenderness, rash - Respiratory Respiratory exam: Present: normal lung sounds bilaterally. Absent: respiratory distress, wheezes - Cardiovascular Cardiovascular exam: Present: regular rate, normal rhythm, normal heart sounds. Absent: systolic murmur, diastolic murmur - Expanded Cardiovascular Exam Peripheral pulses: 2+: radial (R), radial (L) - Abdominal Exam Abdominal exam: Present: soft, Non-Tender, normal bowel sounds. Absent: tenderness, distention, guarding, rebound, rigidity, tenderness at McBurney's Point, pulsatile mass - Extremities Exam Extremities exam: Present: normal inspection, full ROM, normal capillary refill. Absent: tenderness, pedal edema - Back Exam Back exam: Present: normal inspection, full ROM. Absent: tenderness, CVA tenderness (R), CVA tenderness (L) - Neurological Exam Neurological exam: Present: alert, oriented X3, CN II-XII intact - Expanded Neurological Exam Patient oriented to: Present: person, place, time Speech: Present: fluid speech Cranial nerves: EOM function (II, III, IV, ): Normal, facial sensation (V): Normal, facial palsy (VII): Normal, gag reflex (IX): Normal, spinal accessory function (XI): Normal, tongue deviation (XII): Normal Cerebellar function: normal gait Motor strength - LUE: 5/5 Motor strength - RUE: 5/5 Motor strength - LLE: 5/5 Motor strength - RLE: 5/5 Upper motor neuron exam: darryl neglect: Absent bilaterally, pronator drift: Absent bilaterally Sensory exam upper extremity: light touch: Normal Sensory exam lower extremity: light touch: Normal - Psychiatric Psychiatric exam: Present: normal affect, normal mood - Skin Skin exam: Present: warm, dry, intact, normal color Course Course Narrative: Patient presents with intermittent chest pain that feels similar to his prior myocardial infarction. He has a history of stents. Also reported history of pulmonary embolism currently taking Eliquis. States his pain seems to radiate vertically along his chest. He denies any lightheadedness or syncope. Radial pulses are equal bilaterally. Given his cardiac history chest pain workup initiated. Will also obtain CT of the chest and abdomen pelvis to evaluate for possible dissection. Patient reports pain of 1 of 10. - Reevaluation(s) Reevaluation #1: EKG does not reveal any acute ischemic changes. No leukocytosis. Some renal insufficiency that appears near baseline 1.4. Troponin was less than 0.03. His HEART score is 5. CT of his chest abdomen and pelvis did not reveal dissection. Patient will likely require admission for further management and monitoring for his chest pain given his cardiac history. Impression is chest pain R/O ACS. Patients in agreement with this plan. Aspirin has been given. Patient is currently chest pain free. CT/CT angio chest IMPRESSION: 1. No acute aortic pathology. No evidence of aneurysm or dissection. Mild to moderate diffuse atherosclerotic plaque as outlined above. 2. No acute pulmonary findings. 3. Mild cardiomegaly. Thinning of the left ventricular wall with calcification, particularly within the septum and apex, consistent with previous myocardial infarction. 4. No acute findings within the abdomen or pelvis. Bilateral renal cysts. 5. Colonic diverticulosis with no acute features. 6. Mild bladder wall thickening with submucosal fat suggesting a chronic cystitis. 7. 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 The SMA is nonstenotic and the KAYLA is patent. - Consultations Consultation #1: Spoke with on-call hospitalist arlene Maqruez to admit for chest pain r/o acs. No further orders at this time. HEART score is 5. Vital Signs Temperature 98.1 F 01/06/18 17:48 Pulse Rate 69 01/06/18 17:48 Respiratory Rate 20 01/06/18 17:48 Blood Pressure 175/108 01/06/18 17:48 O2 Sat by Pulse Oximetry 96 01/06/18 17:48 Temperature 98.1 F 01/06/18 18:13 Pulse Rate 64 01/06/18 20:57 Respiratory Rate 18 01/06/18 18:13 Blood Pressure 137/104 01/06/18 20:57 O2 Sat by Pulse Oximetry 96 01/06/18 18:20 Oxygen Delivery Oxygen Delivery Room Air Chest Pain - MDM Narrative Medical decision making narrative: Patient was discussed with my attending physician who agrees with ED management and final disposition. They independently evaluated the patient. Please refer to their attestation to this encounter for additional information. This note was generated by [employer] voice recognition software and as a result grammatical or spelling errors may occur using this program. - Medical Records Medical records reviewed: Yes I reviewed the patient's medical records. - Lab Data Lab results reviewed: Yes I reviewed the patient's lab results. Result diagrams: 01/06/18 18:44 01/06/18 18:44 Lab Results 01/06/18 01/06/18 01/06/18 Range/Units 18:44 18:44 18:44 WBC 5.8 (4.3-11.1) K/mcL RBC 4.39 (4.19-5.50) M/mcL Hgb 13.0 (12.9-16.9) g/dL Hct 39.8 (37.5-50.1) % MCV 90.7 (83.0-100.0) fL MCH 29.6 (28.0-33.3) pg MCHC 32.7 (31.6-35.5) g/dL RDW 15.0 H (11.5-14.5) % Plt Count 193 (140-400) K/mcL MPV 11.6 (9.4-12.4) fL Immature Gran % 0.2 (0-4) % Seg Neutrophils % 64.7 % Lymphocytes % 21.1 % Monocytes % 11.2 % Eosinophils % 1.9 % Basophils % 0.9 % Neutrophils # 3.7 (1.6-8.9) K/mcL Lymphocytes # 1.2 (0.6-4.6) K/mcL Monocytes # 0.7 (0.0-1.3) K/mcL Eosinophils # 0.1 (0.0-0.6) K/mcL Basophils # 0.1 (0.0-0.2) K/mcL PT 14.6 H (9.4-12.1) Seconds INR 1.3 APTT 34.5 (26.0-36.0) Seconds Sodium 137 (136-145) mEq/L Potassium 4.3 (3.5-5.1) mEq/L Chloride 105 (98-107) mEq/L Carbon Dioxide 27 (23-29) mEq/L BUN 20 (8-23) mg/dL Creatinine 1.40 H (0.70-1.30) mg/dL Est GFR ( Amer) > 60 (> 60) Est GFR (Non-Af Amer) 50 L (> 60) BUN/Creatinine Ratio 14 (6-26) Glucose 107 H (70-105) mg/dL Calculated Osmolality 287 (280-300) Calcium 9.3 (8.6-10.3) mg/dL Troponin I < 0.03 (< 0.04) ng/mL - Radiology Data Radiology results reviewed: Yes I reviewed the patient's radiology results. Chest X-Ray 01/06/18 18:13 IMPRESSION: No acute cardiopulmonary disease D/ / Thaddeus Lopez MD / Thaddeus Lopez MD Interpreting Provider: Thaddeus Lopez MD Abdomen/Pelvis CTA 01/06/18 18:20 IMPRESSION: 1. No acute aortic pathology. No evidence of aneurysm or dissection. Mild to moderate diffuse atherosclerotic plaque as outlined above. 2. No acute pulmonary findings. 3. Mild cardiomegaly. Thinning of the left ventricular wall with calcification, particularly within the septum and apex, consistent with previous myocardial infarction. 4. No acute findings within the abdomen or pelvis. Bilateral renal cysts. 5. Colonic diverticulosis with no acute features. 6. Mild bladder wall thickening with submucosal fat suggesting a chronic cystitis. 7. 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 The SMA is nonstenotic and the KAYLA is patent. D/ : / 01/06/2018 20:30:35 Yefri Escalona MD / timbo Interpreting Provider: Yefri Escalona MD Chest CTA 01/06/18 18:20 IMPRESSION: 1. No acute aortic pathology. No evidence of aneurysm or dissection. Mild to moderate diffuse atherosclerotic plaque as outlined above. 2. No acute pulmonary findings. 3. Mild cardiomegaly. Thinning of the left ventricular wall with calcification, particularly within the septum and apex, consistent with previous myocardial infarction. 4. No acute findings within the abdomen or pelvis. Bilateral renal cysts. 5. Colonic diverticulosis with no acute features. 6. Mild bladder wall thickening with submucosal fat suggesting a chronic cystitis. 7. 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 The SMA is nonstenotic and the KAYLA is patent. D/ : / 01/06/2018 20:30:35 Yefri Escalona MD / timbo Interpreting Provider: Yefri Escalona MD - EKG Data EKG attestation: Yes I reviewed and interpreted this EKG. EKG results narrative: EKG performed 1752 normal sinus rhythm 65 beats per minute, ND interval measured 203, no drop beats, no ST elevation or depression, Q waves in the septal leads with poor R wave progression similar to prior EKG consistent with prior TN. Compared to prior EKG performed 04/12/2017 shows similar consistent findings. No acute ischemic changes. Heart Score - Score History: Slightly Suspicious EKG: Non Specific repolarisation Disturbance Age: Greater than 65 Risk Factors: Equal/Greater than 3 risk factor or history of atherosclerotic disease Troponin: Less than normal limit HEART Score Total: 5 Attestation Statement - Attestation Attestation: I, Michael Alfaro DO, examined this patient [id number] and my medical decision-making was reviewed with Bernard Posadas DO , Resident Physician. I agree with the documented findings, disposition and treatment plan as described except to the extent set forth below. Please see my progress notes for details.
[2018-01-06] MEDS ORDERED: Isovue-370 500 ML INFUS..BTL IV ONE (18:20)
[2018-01-06 19:03] LABS: Basophils # 0.1 K/mcL (0.0-0.2); Basophils % 0.9 %; Eosinophils # 0.1 K/mcL (0.0-0.6); Eosinophils % 1.9 %; Hematocrit 39.8 % (37.5-50.1); Immature Granulocytes % 0.2 % (0-4); Lymphocytes # 1.2 K/mcL (0.6-4.6); Lymphocytes % 21.1 %; Mean Corpuscular HGB Conc 32.7 g/dL (31.6-35.5); Mean Corpuscular Hemoglobin 29.6 pg (28.0-33.3); Mean Corpuscular Volume 90.7 fL (83.0-100.0); Mean Platelet Volume 11.6 fL (9.4-12.4); Monocytes # 0.7 K/mcL (0.0-1.3); Monocytes % 11.2 %; Neutrophils # 3.7 K/mcL (1.6-8.9); Platelet Count 193 K/mcL (140-400); Red Blood Count 4.39 M/mcL (4.19-5.50); Segmented Neutrophils % 64.7 %
[2018-01-06 19:09] LABS: INR 1.3; Prothrombin Time 14.6 Seconds (9.4-12.1)
[2018-01-06 19:11] LABS: Activated Partial Thrombo Time 34.5 Seconds (26.0-36.0)
[2018-01-06 19:22] LABS: BUN/Creatinine Ratio 14 (6-26); Blood Urea Nitrogen 20 mg/dL (8-23); Calcium 9.3 mg/dL (8.6-10.3); Carbon Dioxide 27 mEq/L (23-29); Chloride 105 mEq/L (98-107); Glucose 107 mg/dL (70-105); Osmolality,Calculated 287 (280-300); Potassium 4.3 mEq/L (3.5-5.1); Sodium 137 mEq/L (136-145); eGFR For African Americans > 60 (> 60); eGFR For Non-African Americans 50 (> 60)
[2018-01-06 19:23] LABS: Troponin I < 0.03 ng/mL (< 0.04)
--- NOTE | 2018-01-06 19:27 | Emergency Department Note ---
Disposition Clinical Impression: Chest pain Disposition: Admitted As Inpatient Condition: Good Referrals: Sheng De Leon Jr, MD [Primary Care Provider] - Forms: ED Satisfaction Letter Time of Disposition: 20:55 General Adult HPI - General Chief complaint: ED Chest Pain Stated complaint: chest pain Time Seen by Provider: 01/06/18 18:01 Source: patient Limitations: no limitations - History of Present Illness Pain Scale: 4 - Related Data Home Medications Medication Instructions Recorded Confirmed Aspirin [Lo-Dose Aspirin EC] 325 mg PO DAILY 03/27/17 04/13/17 Atorvastatin Calcium [Lipitor] 80 mg PO HS 03/27/17 04/13/17 Ezetimibe [Zetia] 10 mg PO DAILY 03/27/17 04/13/17 Furosemide [Lasix] 20 - 40 mg PO DAILY 03/27/17 04/13/17 Losartan Potassium [Cozaar] 100 mg PO DAILY 03/27/17 04/13/17 Sertraline [Zoloft] 150 mg PO DAILY 03/27/17 04/13/17 Testosterone Cypionate 400 mg IM QMONTH 03/27/17 04/13/17 [Depo-Testosterone] Previous Rx's Medication Instructions Recorded Metoprolol XL (24 HR) Succ [Toprol 100 mg PO DAILY #30 03/29/17 Xl] Apixaban [Eliquis] 10 mg PO BID #45 tablet 04/13/17 Apixaban [Eliquis] 10 mg PO BID #8 tablet 04/13/17 Allergies Allergy/AdvReac Type Severity Reaction Status Date / Time No Known Allergies Allergy Verified 03/27/17 08:22 Constitutional: Denies: fever, chills Cardiovascular: Reports: chest pain. Denies: syncope Respiratory: Denies: cough, dyspnea Gastrointestinal: Reports: abdominal pain. Denies: nausea, vomiting, diarrhea, melena, hematochezia Genitourinary: Denies: urgency, dysuria Musculoskeletal: Denies: back pain Integumentary: Denies: rash, abrasion Neurological: Denies: headache, weakness Past Medical History - Past Medical History Medical history: Reports: coronary artery disease, GERD, hyperlipidemia, hypertension, myocardial infarction Surgical history: Reports: angioplasty/stent, appendectomy, other Psychiatric history: Reports: anxiety, depression - Social History Smoking Status: Never smoker Smokeless Tobacco Status: No Alcohol use: Reports: none Drug use: Reports: none Physical Exam - General Limitations: no limitations General appearance: alert, in no apparent distress, obese Course Vital Signs Temperature 98.1 F 01/06/18 17:48 Pulse Rate 69 01/06/18 17:48 Respiratory Rate 20 01/06/18 17:48 Blood Pressure 175/108 01/06/18 17:48 O2 Sat by Pulse Oximetry 96 01/06/18 17:48 Temperature 98.1 F 01/06/18 18:13 Pulse Rate 77 01/06/18 18:13 Respiratory Rate 18 01/06/18 18:13 Blood Pressure 147/90 01/06/18 18:13 O2 Sat by Pulse Oximetry 96 01/06/18 18:20 Oxygen Delivery Oxygen Delivery Room Air Medical Decision Making - Lab Data Result diagrams: 01/06/18 18:44 01/06/18 18:44 Lab Results 01/06/18 01/06/18 01/06/18 Range/Units 18:44 18:44 18:44 WBC 5.8 (4.3-11.1) K/mcL RBC 4.39 (4.19-5.50) M/mcL Hgb 13.0 (12.9-16.9) g/dL Hct 39.8 (37.5-50.1) % MCV 90.7 (83.0-100.0) fL MCH 29.6 (28.0-33.3) pg MCHC 32.7 (31.6-35.5) g/dL RDW 15.0 H (11.5-14.5) % Plt Count 193 (140-400) K/mcL MPV 11.6 (9.4-12.4) fL Immature Gran % 0.2 (0-4) % Seg Neutrophils % 64.7 % Lymphocytes % 21.1 % Monocytes % 11.2 % Eosinophils % 1.9 % Basophils % 0.9 % Neutrophils # 3.7 (1.6-8.9) K/mcL Lymphocytes # 1.2 (0.6-4.6) K/mcL Monocytes # 0.7 (0.0-1.3) K/mcL Eosinophils # 0.1 (0.0-0.6) K/mcL Basophils # 0.1 (0.0-0.2) K/mcL PT 14.6 H (9.4-12.1) Seconds INR 1.3 APTT 34.5 (26.0-36.0) Seconds Sodium 137 (136-145) mEq/L Potassium 4.3 (3.5-5.1) mEq/L Chloride 105 (98-107) mEq/L Carbon Dioxide 27 (23-29) mEq/L BUN 20 (8-23) mg/dL Creatinine 1.40 H (0.70-1.30) mg/dL Est GFR ( Amer) > 60 (> 60) Est GFR (Non-Af Amer) 50 L (> 60) BUN/Creatinine Ratio 14 (6-26) Glucose 107 H (70-105) mg/dL Calculated Osmolality 287 (280-300) Calcium 9.3 (8.6-10.3) mg/dL Troponin I < 0.03 (< 0.04) ng/mL Attestation Statement - Attestation Attestation: I, Michael Alfaro DO, examined this patient [id number] and my medical decision-making was reviewed with Bernard Posadas DO , Resident Physician. I agree with the documented findings, disposition and treatment plan as described except to the extent set forth below. Please see my progress notes for details. 67-year-old male presents to the emergency room for evaluation of periumbilical discomfort that is now moved into the subxiphoid region of his chest wall. Patient was concerned because he had a previous myocardial infarction back in 1999 that he thinks felt similar. Currently on Eliquis secondary to pulmonary emboli. Is currently denying chest pain shortness of breath headache vision changes nausea vomiting or diarrhea. He had these symptoms on and off since Sunday night but they have slowly gotten worse and moved up to his chest wall and had him concerned. On a detailed review the presentation symptoms he is denying any pressure pain or symptoms across the chest wall this time. Patient does not require an acute nitroglycerin trial. Aspirin will be given here. Patient is on Eliquis likelihood of blood clot or concern for thrombotic event is low. Patient's vital signs are reviewed and are stable. Physical exam is unremarkable lungs are clear heart is regular abdomen is soft there is no pulsatile lesions masses or signs of trauma or injury to the abdominal wall does point. Patient is concerning for intra-abdominal versus thoracic related pathology causing the symptoms here today. Initial EKG was stable no acute signs of ST segment elevation or abnormality. Patient will be treated symptomatically as needed. He will have CT angiography the chest and abdomen ruling out aneurysm or dissection. Patient is low risk for pulmonary emboli at this time secondary to artery being on anticoagulation. We will continue monitor his treatment course is completed with imaging modalities and labs. Disposition pending the full treatment course and evaluation. See detailed documentation of the physical exam, medical intervention, medical decision- making and disposition in the resident physician's note. No critical care provider the patient's treatment course this time. Patient has symmetrical pulses in the upper extremities with no acute signs of diaphoresis or symptoms at this point. 1999 Patient has negative labs at this time. EKG is unremarkable. Patient has CT angiography the chest and abdomen pending at this point. Patient has negative chest x-ray. His symptoms have completely resolved while here in the emergency room. He does have a history of renal insufficiency that appears to be around his consistent numbers at this point. Patient most likely require admission secondary to history as well as no recent echo or stress test being completed. Patient is otherwise stable at this time. Admission process to be completed once imaging is resulted. 2054 Patient was accepted to hospitals. Patient still symptom-free. No other recommendations or concerns at this time.
[2018-01-06] MEDS ORDERED: Aspirin 81 MG TAB.CHEW PO STA (19:39)
--- NOTE | 2018-01-06 21:24 | Internal Med History&Physical ---
Date of Encounter: 01/06/18 Time of Encounter: 21:20 Internal Medicine - H&P: HPI Chief complaint: Chest pain Admitted From: Emergency Dept Plans for Post Hospital Care: Home History of present illness: Mr. De Santiago is a 67 year old male with a history of coronary artery disease with stents in 1999, GERD, hyperlipidemia, PE, hypertension, chronic kidney disease who presents to the emergency department with complaints of chest pain. Chest pain started on Sunday afternoon when he experienced nonexertional chest pain that he describes as sharp and nonradiating. It felt more like epigastric pain but was moving up to the mid chest. No nausea or vomiting. No shortness of breath. Denies dizziness. The patient underwent workup in the ED that showed an EKG that was with no acute ST or T-wave changes. Troponins were not elevated. Given his history of PE he underwent a CT chest, abdomen and pelvis which ruled out a PE. The patient remained hemodynamically stable in the ED however upon presentation his blood pressure was noted to be 175/108. 147/90. Later his blood pressure came down to The patient has received aspirin 324 mg. Denies any headache, blurry vision, diarrhea, constipation, shortness of breath, urinary symptoms, edema, or neurological symptoms. Past Med Surg Social Fam HX - Past Medical History Medical history: coronary artery disease, GERD, hyperlipidemia, hypertension, myocardial infarction Psychiatric history: anxiety, depression - Past Surgical History Surgical History: angioplasty/stent, appendectomy, other Additional surgical history: Right knee replacement 2015, hx of pulmonary embolisms - Social History Smoking Status: Never smoker Smokeless Tobacco Status: No Alcohol use: none Drug use: none - Family History Mother Living Status: Father Living Status: Hx Family Cardiac Disorders: Yes Brother Living Status: Hx Family Endocrine Disorder: Yes (DM) Internal Medicine - H&P: Meds Aspirin [Lo-Dose Aspirin EC] 325 mg PO DAILY 03/27/17 [History] Atorvastatin Calcium [Lipitor] 80 mg PO HS 03/27/17 [History] Ezetimibe [Zetia] 10 mg PO DAILY 03/27/17 [History] Furosemide [Lasix] 20 - 40 mg PO DAILY 03/27/17 [History] Losartan Potassium [Cozaar] 100 mg PO DAILY 03/27/17 [History] Sertraline [Zoloft] 150 mg PO DAILY 03/27/17 [History] Testosterone Cypionate [Depo-Testosterone] 400 mg IM QMONTH 03/27/17 [History] Metoprolol XL (24 HR) Succ [Toprol Xl] 100 mg PO DAILY #30 03/29/17 [Rx] Apixaban [Eliquis] 10 mg PO BID #45 tablet 04/13/17 [Rx] Apixaban [Eliquis] 10 mg PO BID #8 tablet 04/13/17 [Rx] 3 Allergy/AdvReac Type Severity Reaction Status Date / Time No Known Allergies Allergy Verified 03/27/17 08:22 All Systems PM: A 10-system review of systems was performed and is negative for pertinent findings except as documented above in the HPI. Review of systems: All systems reviewed are negative except as mentioned above - Constitutional Vitals: Temp Pulse Resp BP Pulse Ox 98.1 F 64 18 137/104 96 01/06/18 18:13 01/06/18 20:57 01/06/18 18:13 01/06/18 20:57 01/06/18 18:20 Exam: GEN: NAD HEENT: AT, NC, No cyanosis, oral mucosa is moist, No JVD Lymphatics: No lymphadenoapthy Eyes: Extrocular muscles intact, anicteric CVS:RRR. S1, S2, No m/r/g RESP: CTAB ABD: Soft, NT, ND, +BS EXT: No edema, No rashes, 2+ DP NEURO: Nonfocal, CN II-XII intact, No focal motor or sensory deficits Psych: Cooperative, Not anxious or depressed Internal Med - H&P Results - Labs CBC & Chem 7: 01/06/18 18:44 01/06/18 18:44 Labs: Short CBC 01/06/18 Range/Units 18:44 WBC 5.8 (4.3-11.1) K/mcL Hgb 13.0 (12.9-16.9) g/dL Hct 39.8 (37.5-50.1) % Plt Count 193 (140-400) K/mcL Neutrophils # 3.7 (1.6-8.9) K/mcL BMP 01/06/18 18:44 Sodium 137 Potassium 4.3 Chloride 105 Carbon Dioxide 27 BUN 20 Creatinine 1.40 H Glucose 107 H Calcium 9.3 Cardiac Enzymes 01/06/18 Range/Units 18:44 Troponin I < 0.03 (< 0.04) ng/mL - Impressions ITS Impressions Chest X-Ray 01/06/18 18:13 IMPRESSION: No acute cardiopulmonary disease D/ / Thaddeus Lopez MD / Thaddeus Lopez MD Interpreting Provider: Thaddeus Lopez MD Abdomen/Pelvis CTA 01/06/18 18:20 IMPRESSION: 1. No acute aortic pathology. No evidence of aneurysm or dissection. Mild to moderate diffuse atherosclerotic plaque as outlined above. 2. No acute pulmonary findings. 3. Mild cardiomegaly. Thinning of the left ventricular wall with calcification, particularly within the septum and apex, consistent with previous myocardial infarction. 4. No acute findings within the abdomen or pelvis. Bilateral renal cysts. 5. Colonic diverticulosis with no acute features. 6. Mild bladder wall thickening with submucosal fat suggesting a chronic cystitis. 7. 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 The SMA is nonstenotic and the KAYLA is patent. D/ : / 01/06/2018 20:30:35 Yefri Escalona MD / timbo Interpreting Provider: Yefri Escalona MD Chest CTA 01/06/18 18:20 IMPRESSION: 1. No acute aortic pathology. No evidence of aneurysm or dissection. Mild to moderate diffuse atherosclerotic plaque as outlined above. 2. No acute pulmonary findings. 3. Mild cardiomegaly. Thinning of the left ventricular wall with calcification, particularly within the septum and apex, consistent with previous myocardial infarction. 4. No acute findings within the abdomen or pelvis. Bilateral renal cysts. 5. Colonic diverticulosis with no acute features. 6. Mild bladder wall thickening with submucosal fat suggesting a chronic cystitis. 7. 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 The SMA is nonstenotic and the KAYLA is patent. D/ : / 01/06/2018 20:30:35 Yefri Escalona MD / timbo Interpreting Provider: Yefri Escalona MD - Assessment and plan (1) Chest pain Current Visit: Yes Status: Acute Assessment and plan: Admit the patient to telemetry. Trend cardiac enzymes. Continue aspirin. Sublingual nitroglycerin when necessary. Given his history of put him in for a stress test in the morning. Check lipid panel and A1c. Qualifiers: Chest pain type: unspecified Qualified Code(s): R07.9 - Chest pain, unspecified (2) Hypertension Current Visit: No Status: Chronic Assessment and plan: Blood pressure was elevated upon presentation. We will resume home antihypertensives. Meds may need to be uptitrated based on his blood pressure readings while he is here. Qualifiers: Hypertension type: essential hypertension Qualified Code(s): I10 - Essential (primary) hypertension (3) HLD (hyperlipidemia) Current Visit: No Status: Acute Assessment and plan: Continue statin. Qualifiers: Hyperlipidemia type: pure hypercholesterolemia Qualified Code(s): E78.00 - Pure hypercholesterolemia, unspecified; E78.0 - Pure hypercholesterolemia (4) CAD (coronary artery disease) Current Visit: No Status: Acute Assessment and plan: Continue cardiac meds. Qualifiers: Coronary Disease-Associated Artery/Lesion type: [place] artery [place] vs. transplanted heart: [place] heart Associated angina: without angina Qualified Code(s): I25.10 - Atherosclerotic heart disease of [place] coronary artery without angina pectoris (5) DVT prophylaxis Current Visit: No Status: Acute Assessment and plan: Patient is on eliquis - Time Spent With Patient Total time spent is greater than 50% in coordination of care (as documented) at patient's floor/unit and/or counseling patient:
[2018-01-06] MEDS ORDERED: Nitroglycerin 0.4 MG TAB.SUBL SL PRN (21:26)
[2018-01-06] MEDS ORDERED: Naloxone 0.4 MG/ML INJ IVP PRN (21:27)
[2018-01-06] MEDS ORDERED: Acetaminophen 325 MG TABLET PO PRN (21:27)
[2018-01-07 01:53] LABS: Basophils % 0.5 %; Eosinophils # 0.1 K/mcL (0.0-0.6); Eosinophils % 1.4 %; Hematocrit 39.6 % (37.5-50.1); Hemoglobin 12.7 g/dL (12.9-16.9); Immature Granulocytes % 0.1 % (0-4); Lymphocytes # 1.7 K/mcL (0.6-4.6); Lymphocytes % 21.4 %; Mean Corpuscular HGB Conc 32.1 g/dL (31.6-35.5); Mean Corpuscular Hemoglobin 28.5 pg (28.0-33.3); Mean Platelet Volume 11.7 fL (9.4-12.4); Monocytes # 0.7 K/mcL (0.0-1.3); Monocytes % 9.1 %; Neutrophils # 5.2 K/mcL (1.6-8.9); Platelet Count 201 K/mcL (140-400); Red Blood Count 4.45 M/mcL (4.19-5.50); Segmented Neutrophils % 67.5 %
[2018-01-07 02:13] LABS: BUN/Creatinine Ratio 14 (6-26); Blood Urea Nitrogen 20 mg/dL (8-23); Calcium 9.2 mg/dL (8.6-10.3); Carbon Dioxide 27 mEq/L (23-29); Chloride 104 mEq/L (98-107); Chol/HDL Ratio 2.8 (0-4.9); Cholesterol 114 mg/dL (< 200); Glucose 92 mg/dL (70-105); HDL Cholesterol 41 mg/dL (40-59); LDL Cholesterol,Calculated 59 mg/dL (0-99); Osmolality,Calculated 288 (280-300); Potassium 3.9 mEq/L (3.5-5.1); Sodium 138 mEq/L (136-145); Triglycerides 68 mg/dL (< 150); eGFR For African Americans > 60 (> 60); eGFR For Non-African Americans 51 (> 60)
[2018-01-07] MEDS ORDERED: Regadenoson 0.4 MG/5 ML SYRINGE IVP ONE ×2 (06:08→08:23)
--- NOTE | 2018-01-07 08:08 | Internal Med Progress Note ---
<Amisha Robledo - Last Filed: 01/07/18 12:35> Date of Encounter: 01/07/18 Time of Encounter: 10:31 - Assessment and plan (1) Chest pain Status: Acute Assessment and plan: Continue telemetry. cardiac enzymes WNL. Continue aspirin. Sublingual nitroglycerin when necessary. Stress test pending at this time. If abnormal we will consult cardiology. If within normal limits plan to discharge patient home and follow-up with cardiology as outpatient. Qualifiers: Chest pain type: unspecified Qualified Code(s): R07.9 - Chest pain, unspecified (2) Hypertension Status: Chronic Qualifiers: Hypertension type: essential hypertension Qualified Code(s): I10 - Essential (primary) hypertension (3) HLD (hyperlipidemia) Status: Acute Assessment and plan: Lipid panel pending. Continue home medications. Qualifiers: Hyperlipidemia type: pure hypercholesterolemia Qualified Code(s): E78.00 - Pure hypercholesterolemia, unspecified; E78.0 - Pure hypercholesterolemia (4) CAD (coronary artery disease) Status: Acute Assessment and plan: Continue home medications. Stress test pending. Patient denies chest pain at this time. Patient currently taking aspirin, statin, and beta vance. Qualifiers: Coronary Disease-Associated Artery/Lesion type: [place] artery [place] vs. transplanted heart: [place] heart Associated angina: without angina Qualified Code(s): I25.10 - Atherosclerotic heart disease of [place] coronary artery without angina pectoris (5) Pulmonary embolism Status: Acute Assessment and plan: Known Pulmonary embolus. Currently on eliquis. No acute pulmonary findings on repeat CTA at admission. Qualifiers: Pulmonary embolism type: other Chronicity: acute Acute cor pulmonale presence: without acute cor pulmonale Qualified Code(s): I26.99 - Other pulmonary embolism without acute cor pulmonale (6) Chronic kidney disease Status: Acute Assessment and plan: Currently at baseline. Good urine output. Qualifiers: Chronic kidney disease stage: stage 3 (moderate) Qualified Code(s): N18.3 - Chronic kidney disease, stage 3 (moderate) (7) DVT prophylaxis Status: Acute Assessment and plan: Patient currently on Eliquis - Time Spent With Patient Total time spent is greater than 50% in coordination of care (as documented) at patient's floor/unit and/or counseling patient: - Subjective Interval history: 59-year-old male admitted for chest pain. Denies any chest pain, pressure or dizziness at this time. Has been able to ambulate to the restroom without difficulty or chest pain. - Constitutional Vitals: Temp Pulse Resp BP Pulse Ox 97.7 F 62 16 154/92 94 01/07/18 07:10 01/07/18 07:10 01/07/18 07:10 01/07/18 07:10 01/07/18 07:10 General appearance: Present: A&O X 3, no acute distress, obese - Head Head exam: Present: atraumatic, normal inspection, normocephalic - Eye Eye exam: Present: EOMI, PERRL - Respiratory Respiratory exam: Present: CTAB. Absent: accessory muscle use, respiratory distress - Cardiovascular Cardiovascular exam: Present: RRR - GI/Abdominal GI/Abdominal exam: Present: soft. Absent: tenderness - Neurological Exam Neurological exam: Present: alert, oriented X3, no focal deficits Internal Medicine: Result - Labs CBC & Chem 7: 01/07/18 01:28 01/07/18 01:28 Labs: Short CBC 01/07/18 Range/Units 01:28 WBC 7.8 (4.3-11.1) K/mcL Hgb 12.7 L (12.9-16.9) g/dL Hct 39.6 (37.5-50.1) % Plt Count 201 (140-400) K/mcL Neutrophils # 5.2 (1.6-8.9) K/mcL BMP 01/07/18 01:28 Sodium 138 Potassium 3.9 Chloride 104 Carbon Dioxide 27 BUN 20 Creatinine 1.39 H Glucose 92 Calcium 9.2 Cardiac Enzymes 01/07/18 01/07/18 Range/Units 01:28 07:04 Troponin I < 0.03 < 0.03 (< 0.04) ng/mL - ABG Interpretation ABG results: PT/INR, D-dimer PT 14.6 Seconds (9.4-12.1) H 01/06/18 18:44 Consult Discharge Plan - Plan Instructions: Chest Pain (DC), Hypoxia (GEN), Impaired Kidney Function (DC) Additional Instructions: Please resume your home medications. Please follow up with your primary care physician within one week. Please return for any new or worsening symptoms. Referrals: Sheng De Leon Jr, MD [Primary Care Provider] - (Within one week) <Socrates Ragland - Last Filed: 01/07/18 18:56> Date of Encounter: 01/07/18 - Assessment and plan (1) Chest pain Status: Acute Qualifiers: Chest pain type: unspecified Qualified Code(s): R07.9 - Chest pain, unspecified (2) DVT prophylaxis Status: Acute (3) Hypertension Status: Chronic Qualifiers: Hypertension type: essential hypertension Qualified Code(s): I10 - Essential (primary) hypertension (4) HLD (hyperlipidemia) Status: Chronic Qualifiers: Hyperlipidemia type: pure hypercholesterolemia Qualified Code(s): E78.00 - Pure hypercholesterolemia, unspecified; E78.0 - Pure hypercholesterolemia (5) CAD (coronary artery disease) Status: Chronic Qualifiers: Coronary Disease-Associated Artery/Lesion type: [place] artery [place] vs. transplanted heart: [place] heart Associated angina: without angina Qualified Code(s): I25.10 - Atherosclerotic heart disease of [place] coronary artery without angina pectoris - Time Spent With Patient Total time spent is greater than 50% in coordination of care (as documented) at patient's floor/unit and/or counseling patient: - Constitutional Vitals: Temp Pulse Resp BP Pulse Ox 98.0 F 67 16 139/86 96 01/07/18 11:31 01/07/18 11:31 01/07/18 11:31 01/07/18 11:31 01/07/18 11:31 Internal Medicine: Result - Labs CBC & Chem 7: 01/07/18 01:28 01/07/18 01:28 Labs: Short CBC 01/07/18 Range/Units 01:28 WBC 7.8 (4.3-11.1) K/mcL Hgb 12.7 L (12.9-16.9) g/dL Hct 39.6 (37.5-50.1) % Plt Count 201 (140-400) K/mcL Neutrophils # 5.2 (1.6-8.9) K/mcL BMP 01/07/18 01:28 Sodium 138 Potassium 3.9 Chloride 104 Carbon Dioxide 27 BUN 20 Creatinine 1.39 H Glucose 92 Calcium 9.2 Cardiac Enzymes 01/07/18 01/07/18 Range/Units 01:28 07:04 Troponin I < 0.03 < 0.03 (< 0.04) ng/mL - ABG Interpretation ABG results: PT/INR, D-dimer PT 14.6 Seconds (9.4-12.1) H 01/06/18 18:44 - Attending Attestation Please see discharge summary of this date.
[2018-01-07] MEDS ORDERED: Apixaban 5 MG TABLET PO SCH ×2 (09:00→21:00)
[2018-01-07] MEDS ORDERED: Aspirin Enteric Coated 325 MG Tablet PO SCH (09:00)
[2018-01-07] MEDS ORDERED: ZETIA 10MG PO SCH (09:00)
[2018-01-07] MEDS ORDERED: Furosemide 20 MG TABLET PO SCH (09:00)
[2018-01-07] MEDS ORDERED: Metoprolol XL (24 HR) Succ 50 MG TAB.ER.24H PO SCH (09:00)
[2018-01-07 09:34] LABS: Estimated Average Glucose 131 mg/dl; Hemoglobin A1C 6.2 %
[2018-01-07 11:33] VITALS: BP 139/86
--- NOTE | 2018-01-07 13:56 | Discharge Summary ---
<Amisha Robledo - Last Filed: 01/07/18 13:53> - NOTES TO OUTPATIENT PROVIDER Notes to Outpatient Provider: Due to patient's high cardiac risk, consider stopping testosterone replacement after shared decision making with patient. Date of Encounter: 01/07/18 Time of Encounter: 13:53 - Discharge Diagnosis (1) Chest pain Priority: Primary Status: Acute Qualifiers: Chest pain type: unspecified Qualified Code(s): R07.9 - Chest pain, unspecified (2) Hypertension Priority: Secondary Status: Chronic Qualifiers: Hypertension type: essential hypertension Qualified Code(s): I10 - Essential (primary) hypertension (3) HLD (hyperlipidemia) Priority: Secondary Status: Chronic Qualifiers: Hyperlipidemia type: pure hypercholesterolemia Qualified Code(s): E78.00 - Pure hypercholesterolemia, unspecified; E78.0 - Pure hypercholesterolemia (4) CAD (coronary artery disease) Priority: Secondary Status: Chronic Qualifiers: Coronary Disease-Associated Artery/Lesion type: [place] artery [place] vs. transplanted heart: [place] heart Associated angina: without angina Qualified Code(s): I25.10 - Atherosclerotic heart disease of [place] coronary artery without angina pectoris (5) Pulmonary embolism Priority: Secondary Status: Chronic Qualifiers: Pulmonary embolism type: other Chronicity: acute Acute cor pulmonale presence: without acute cor pulmonale Qualified Code(s): I26.99 - Other pulmonary embolism without acute cor pulmonale (6) Chronic kidney disease Priority: Secondary Status: Chronic Qualifiers: Chronic kidney disease stage: stage 3 (moderate) Qualified Code(s): N18.3 - Chronic kidney disease, stage 3 (moderate) Hospital course: Mr. De Santiago is a 67 year old male who presented and admitted for chest pain. Patient has known history of coronary artery disease, hyperlipidemia and hypertension. During patient's admission he had multiple negative troponin lab results. Stress test was completed. Fixed defect found but compared to stress test completed in 2014 unchanged. I spoke with [facility] administrator on-call Dr. Christianson who agreed this is an old finding. No new findings on stress test. Patient able to exert himself without chest pain or pressure. Chest pain-free at this time. Discharge home to follow up with primary care physician within one week. Discharge discussed with: patient - Time Spent with Patient Total time spent providing and/or coordinating discharge services: Less than 30 minutes - Discharge Medications Home Medications: Aspirin [Lo-Dose Aspirin EC] 325 mg PO DAILY 03/27/17 [History] Atorvastatin Calcium [Lipitor] 80 mg PO HS 03/27/17 [History] Ezetimibe [Zetia] 10 mg PO DAILY 03/27/17 [History] Furosemide [Lasix] 20 mg PO DAILY PRN 03/27/17 [History] Sertraline [Zoloft] 200 mg PO DAILY 03/27/17 [History] Testosterone Cypionate [Depo-Testosterone] 400 mg IM QMONTH 03/27/17 [History] Metoprolol XL (24 HR) Succ [Toprol Xl] 100 mg PO DAILY #30 03/29/17 [Rx] Apixaban [Eliquis] 5 mg PO BID 01/07/18 [History] Bupropion HCl [Wellbutrin Xl] 300 mg PO QAM 01/07/18 [History] Cholecalciferol (D-3) [Vitamin D] 2,000 unit PO DAILY 01/07/18 [History] Ginkgo Biloba [place] Extract [Ginkgo Biloba] 120 mg PO DAILY 01/07/18 [History] Multivitamin [One Daily Multivitamin] 1 tab PO DAILY 01/07/18 [History] Nitroglycerin [Nitrostat] 0.4 mg SL Q5M PRN 01/07/18 [History] Sacubitril/Valsartan [Entresto 49 mg-51 mg Tablet] 1 tab PO BID 01/07/18 [ History] Allergies/Adverse Reactions: 3 Allergy/AdvReac Type Severity Reaction Status Date / Time No Known Allergies Allergy Verified 01/07/18 12:39 Date of admission: 01/06/18 23:54 Primary care physician: Sheng De Leon Jr, MD Discharging clinician: Amisha Robledo Anticipated date of discharge: 01/07/18 - Constitutional Vitals: Temp Pulse Resp BP Pulse Ox 98.0 F 67 16 139/86 96 01/07/18 11:31 01/07/18 11:31 01/07/18 11:31 01/07/18 11:31 01/07/18 11:31 General appearance: Present: A&O X 3, no acute distress, obese - Head Head exam: Present: atraumatic, normal inspection, normocephalic - Eye Eye exam: Present: EOMI, PERRL - Respiratory Respiratory exam: Present: CTAB. Absent: accessory muscle use, respiratory distress - Cardiovascular Cardiovascular exam: Present: RRR. Absent: distant heart sounds - Extremities Exam Extremities exam: Present: normal capillary refill, normal inspection - Neurological Exam Neurological exam: Present: alert, oriented X3, no focal deficits - Patient Status Disposition: Home, Self-Care Condition: Good Functional capacity at discharge: independent ambulation Overall status at discharge: patient is back to baseline - Discharge Instructions Instructions: Chest Pain (DC), Hypoxia (GEN), Impaired Kidney Function (DC) Follow Up With: Sheng De Leon Jr, MD [Primary Care Provider] - (Within one week) Additional Instructions: Please resume your home medications. Please follow up with your primary care physician within one week. Please return for any new or worsening symptoms. - Diet and Activity Activity: resume usual activities as tolerated Diet: low salt diet <Socrates Ragland - Last Filed: 01/07/18 19:02> Date of Encounter: 01/07/18 - Discharge Diagnosis (1) Chest pain Status: Acute Qualifiers: Chest pain type: unspecified Qualified Code(s): R07.9 - Chest pain, unspecified (2) DVT prophylaxis Status: Acute (3) Hypertension Status: Chronic Qualifiers: Hypertension type: essential hypertension Qualified Code(s): I10 - Essential (primary) hypertension (4) HLD (hyperlipidemia) Status: Chronic Qualifiers: Hyperlipidemia type: pure hypercholesterolemia Qualified Code(s): E78.00 - Pure hypercholesterolemia, unspecified; E78.0 - Pure hypercholesterolemia (5) CAD (coronary artery disease) Status: Chronic Qualifiers: Coronary Disease-Associated Artery/Lesion type: [place] artery [place] vs. transplanted heart: [place] heart Associated angina: without angina Qualified Code(s): I25.10 - Atherosclerotic heart disease of [place] coronary artery without angina pectoris Hospital course: Mr. De Santiago is a 67 year old male - Time Spent with Patient Total time spent providing and/or coordinating discharge services: Date of admission: 01/06/18 23:54 Primary care physician: Sheng De Leon Jr, MD - Constitutional Vitals: Temp Pulse Resp BP Pulse Ox 98.0 F 67 16 139/86 96 01/07/18 11:31 06/04/18 11:31 01/07/18 11:31 01/07/18 11:31 01/07/18 11:31 - Attending Attestation I examined this patient and my medical decision-making was reviewed with the Resident Physician on 01/07/18. I agree with the documented findings, disposition and treatment plan as described except to the extent set forth below. Mr De Santiago has been in observation for chest pain. He is asymptomatic at this time. His stress test had no reversible ischemia. He is currently afebrile and ready for discharge home. Exam Alert Comfortable Mucus membranes dry Heart reg No wheeze Plan D/C home today.
--- NOTE | 2018-01-07 17:23 | Electrocardiograph Report ---
[address] [place] [address] Test Date: 2018-01-06 Pat Name: Sheng De Santiago Department: 104 Room: 2S2 Gender: M [employer] Officer: [place] : 1950 Requested By: Michael Alfaro Order Number: [id number] Reading MD: Cathi Wu Measurements Intervals [place] Rate: 65 P: 13 AK: 203 QRS: -27 QRSD: 90 T: 82 QT: 340 QTc: 351 Interpretive Statements SINUS RHYTHM ANTEROSEPTAL MYOCARDIAL INFARCTION, OF INDETERMINATE AGE Electronically Signed On 01-07-2018 17:21:37 EDT by Cathi Wu
== END 2018-01-07 15:28 | disposition home or self-care (01) ==
LOC: EMEROO 17:48 → 2SOUTHHOLD 17:48 → SUATTDRO 23:54 → 2SOUTHHOLD 01-07
PROVIDERS: ADMIT Internal Medicine; ATTEND Internal Medicine

== ENCOUNTER 2019-06-18 20:41 | Inpatient (IN) ==
[2019-06-18] MEDS ORDERED: Aspirin 81 MG TAB.CHEW PO ONE (20:42)
[2019-06-18 21:09] LABS: Basophils # 0.1 K/mcL (0.0-0.2); Basophils % 1.4 %; Eosinophils # 0.1 K/mcL (0.0-0.6); Eosinophils % 1.6 %; Hematocrit 39.1 % (37.5-50.1); Hemoglobin 13.2 g/dL (12.9-16.9); Immature Granulocytes % 0.2 % (0-4); Lymphocytes # 1.8 K/mcL (0.6-4.6); Lymphocytes % 31.9 %; Mean Corpuscular HGB Conc 33.8 g/dL (31.6-35.5); Mean Corpuscular Hemoglobin 32.6 pg (28.0-33.3); Mean Corpuscular Volume 96.5 fL (83.0-100.0); Mean Platelet Volume 11.4 fL (9.4-12.4); Monocytes # 0.6 K/mcL (0.0-1.3); Monocytes % 9.7 %; Neutrophils # 3.2 K/mcL (1.6-8.9); Platelet Count 223 K/mcL (140-400); Red Blood Count 4.05 M/mcL (4.19-5.50); Red Cell Distribution Width 13.1 % (11.5-14.5); Segmented Neutrophils % 55.2 %; White Blood Count 5.8 K/mcL (4.3-11.1)
[2019-06-18 21:31] LABS: BUN/Creatinine Ratio 14 (6-26); Blood Urea Nitrogen 19 mg/dL (8-23); Calcium 9.6 mg/dL (8.6-10.3); Carbon Dioxide 29 mEq/L (23-29); Chloride 103 mEq/L (98-107); Glucose 103 mg/dL (70-105); Osmolality,Calculated 289 (280-300); Potassium 4.4 mEq/L (3.5-5.1); Sodium 138 mEq/L (136-145); Troponin I < 0.03 ng/mL (< 0.04); eGFR For African Americans > 60 (> 60); eGFR For Non-African Americans 54 (> 60)
[2019-06-19] MEDS ORDERED: Naloxone 0.4 MG/ML INJ IVP PRN (02:28)
[2019-06-19 04:06] LABS: Basophils # 0.1 K/mcL (0.0-0.2); Eosinophils # 0.1 K/mcL (0.0-0.6); Eosinophils % 1.6 %; Hematocrit 38.4 % (37.5-50.1); Hemoglobin 12.5 g/dL (12.9-16.9); Immature Granulocytes % 0.3 % (0-4); Lymphocytes # 1.9 K/mcL (0.6-4.6); Mean Corpuscular HGB Conc 32.6 g/dL (31.6-35.5); Mean Corpuscular Hemoglobin 31.4 pg (28.0-33.3); Mean Corpuscular Volume 96.5 fL (83.0-100.0); Mean Platelet Volume 11.7 fL (9.4-12.4); Monocytes # 0.6 K/mcL (0.0-1.3); Monocytes % 9.1 %; Neutrophils # 3.5 K/mcL (1.6-8.9); Platelet Count 206 K/mcL (140-400); Red Blood Count 3.98 M/mcL (4.19-5.50); Red Cell Distribution Width 13.2 % (11.5-14.5); White Blood Count 6.2 K/mcL (4.3-11.1)
[2019-06-19 04:26] LABS: BUN/Creatinine Ratio 14 (6-26); Blood Urea Nitrogen 18 mg/dL (8-23); Calcium 9.5 mg/dL (8.6-10.3); Carbon Dioxide 29 mEq/L (23-29); Chloride 104 mEq/L (98-107); Glucose 142 mg/dL (70-105); Osmolality,Calculated 294 (280-300); Potassium 4.2 mEq/L (3.5-5.1); Sodium 140 mEq/L (136-145); eGFR For African Americans > 60 (> 60); eGFR For Non-African Americans 55 (> 60)
[2019-06-19] MEDS ORDERED: Regadenoson 0.4 MG/5 ML SYRINGE IVP ONE (06:05)
[2019-06-19] MEDS ORDERED: Apixaban 5 MG TABLET PO SCH (09:00)
[2019-06-19] MEDS ORDERED: Perflutren Lipid Microsphere 1.3 ML in 0.9 % Sodium Chloride 8.7 ML IVP ONE (09:06)
[2019-06-19] MEDS ORDERED: Nitroglycerin 0.4 MG TAB.SUBL SL PRN (10:02)
[2019-06-19] MEDS ORDERED: BuPROPion XL (24 HR) 150 MG TABLET PO SCH (10:15)
[2019-06-19] MEDS ORDERED: Cholecalciferol (D-3) 1,000 UNIT (25MCG) TABLET PO SCH (10:15)
[2019-06-19] MEDS ORDERED: GINKGO BILOBA LEAF EXTRACT 120 MG PO SCH (10:15)
[2019-06-19] MEDS ORDERED: (Ezetimibe [Zetia] 10 MG) PO SCH (10:15)
[2019-06-19] MEDS ORDERED: Metoprolol XL (24 HR) Succ 50 MG TAB.ER.24H PO SCH (10:15)
[2019-06-19] MEDS ORDERED: Aspirin Enteric Coated 81 MG Tablet PO SCH (10:15)
[2019-06-19] MEDS ORDERED: Multivit/Ca/Min/Fe/FA 1 TAB TABLET PO SCH (10:15)
[2019-06-19 11:56] VITALS: BP 127/76
[2019-06-19] MEDS ORDERED: Sacubitril/Valsartan 49/51 MG 1 TABLET PO SCH (21:00)
== END 2019-06-19 16:32 | disposition home or self-care (01) | DRG 313 ==
LOC: EMEROOARM 20:41 → 3BNU 20:41
PROVIDERS: ADMIT Internal Medicine; ATTEND Internal Medicine